=== PATIENT | female | born 1945 | race Caucasian/White ===

== ENCOUNTER → 2018-02-03 08:39 | Outpatient (CLI) | payer MEDICARE, SELFPAY ==
[2018-02-03 10:24] LABS: Absolute Lymphocyte Count 2.22 X10^3/ul (0.83-4.51); Absolute Neutrophil Count 3.2 X10^3/uL (2.0-7.7); Basophil# 0.02 X10^3/uL; Basophil% 0.3 % (0-1); Eosinophil# 0.07 X10^3/uL; Eosinophils% 1.2 % (0-5); Hemoglobin 12.6 g/dl (12.0-15.0); Lymphocyte # 2.22 X10^3/ul (4.0); Lymphocyte % 36.8 % (19-41); Mean Corp Hgb Conc 32.3 g/gl (32-36); Mean Corpuscular Hgb 30.4 pg (27.0-32.0); Mean Corpuscular Volume 94.2 fL (81-99); Mean Platelet Vol. 9.1 fl (6.2-12.0); Monocyte# 0.52 X10^3/uL; Monocyte% 8.6 % (0-10); Neutrophil # 3.18 X10^3/uL (2.7-7.7); Neutrophil % 52.8 % (47-70); Platelet Count 330 K/mm3 (150-450); RBC Distribution Width CV 14.3 % (11.6-14.6); RBC Distribution Width SD 48.9 fl (35.1-43.9); Red Blood Count 4.14 M/mm3 (4.2-5.4)
[2018-02-03 10:25] LABS: POSITIVE COUNT NO; POSITIVE DIFFERENTIAL NO; POSITIVE MORPHOLOGY NO
[2018-02-03 10:58] LABS: AST(SGOT) 22 U/L (15-37); Alanine Aminotransfer ALT/SGPT 20 U/L (13-56); Albumin, Serum 3.7 g/dL (3.2-5.0); Alkaline Phosphatase 70 U/L (45-117); Anion Gap 6 (5-15); BUN 15 mg/dL (7-18); BUN/Creat Ratio 19.3 RATIO (10-20); Calcium,Total 8.8 mg/dL (8.5-10.1); Chloride 105 mmol/L (98-107); Creatinine, Serum 0.78 mg/dL (0.55-1.02); EST Glomerular Filtration Rate 78 mL/min (>60); Est Glom Filt Rate - Afr Amer 94 mL/min (>60); Globulin 3.8 g/dL (2.2-4.2); Glucose 96 mg/dL (74-106); Potassium 3.6 mmol/L (3.5-5.1); Protein, Total 7.5 g/dL (6.4-8.2); Sodium Level 140 mmol/L (136-145)
== END ==
PROVIDERS: Family Provider Family Medicine; PCP Family Medicine; Visit Provider Internal Medicine Rheumatology
DX: M06.09 Rheumatoid arthritis without rheumatoid factor, multiple sites (principal); M18.0 Bilateral primary osteoarthritis of first carpometacarpal joints
CPT/HCPCS: 36415; 80053; 85025

== ENCOUNTER → 2018-10-22 11:56 | Outpatient (CLI) | payer MEDICARE, SELFPAY ==
--- NOTE | 2018-10-22 11:59 | BI_ITS ---
MAMMOGRAPHY - BILATERAL SCREENING REASON FOR EXAM: Female, 72 years old. Routine annual screening examination. PERTINENT HISTORY: Non-contributory. TECHNIQUE: Digital bilateral breast marino (3D mammographic acquisition) in the CC and MLO projections. 2-D mediolateral oblique (MLO) and craniocaudad (CC) views of both breasts were obtained. CAD: Full Field Digital Mammography with Computer Added Detection was performed. COMPARISON: Comparison is made with prior study dated September 13, 2017 and August 27, 2016. FINDINGS: Breast Composition: The breasts are heterogeneously dense, which may obscure small masses. There are no dominant masses or suspicious calcifications. No other significant abnormalities are identified. There has been no significant change since the prior study. BI/SCREENING MAMM (CAD), BILAT IMPRESSION: Stable bilateral screening mammogram. Yearly follow-up mammogram recommended. (A) ASSESSMENT CATEGORY: BIRADS Category 1: Negative. A letter regarding these results will be sent to the patient by the facility within 30 days. Approximately 10% of breast cancers are not detected by mammography. A normal mammogram should not delay biopsy of a clinically suspicious abnormality. [id number] Electronically Signed: Erik Saxena MD at 13:14 EST Tel [phone], Service support ,
--- OUTSIDE RECORDS SUMMARY | 2018-12-08 07:16 | XMS RPT_ITS ---
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, Community unspecified / Hospital M15.9(ICD-10) Repository 02/03/2018 Unknown M18.11 - Unilateral Vellanki, Lenore Active [place] primary Community osteoarthritis of Hospital first carpometacarpal Repository joint, right hand / M18.11(ICD-10) 02/03/2018 Unknown M18.10 - Unilateral Vellanki, Lenore Active [place] primary Community osteoarthritis of Hospital first carpometacarpal Repository joint, unspecified hand / M18.10(ICD-10) 02/03/2018 Unknown M18.12 - Unilateral Vellanki, Lenore Active [place] primary Community osteoarthritis of Hospital first carpometacarpal Repository joint, left hand / M18.12(ICD-10) PROCEDURES PROCEDURES No Procedure Records FoundRESULTS RESULTS SCREENING MAMM (CAD), Observed: 10/22/2018 Status: F Source: [place] BILAT 11:59 AM [facility] REPOSITORY [facility] Imaging Services [address] [place] [address] SCREENING MAMM (CAD), BILAT MR#: [id number] Acct: [id number] Name: TAMMIE SANCHEZ Rep #: [id number] : 1945 F 72 From: Erik Saxena MD PCP: Natalie Farris DO Status: REG CLI Study: SCREENING MAMM (CAD), BILAT Date of Exam: 10/22/18 Exam# [id number] Ordering Dr: Natalie Farris DO MAMMOGRAPHY - BILATERAL SCREENING REASON FOR EXAM: Female, 72 years old. Routine annual screening examination. PERTINENT HISTORY: Non-contributory. TECHNIQUE: Digital bilateral breast marino (3D mammographic acquisition) in the CC and MLO projections. 2-D mediolateral oblique (MLO) and craniocaudad (CC) views of both breasts were obtained. CAD: Full Field Digital Mammography with Computer Added Detection was performed. COMPARISON: Comparison is made with prior study dated September 13, 2017 and August 27, 2016. FINDINGS: Breast Composition: The breasts are heterogeneously dense, which may obscure small masses. There are no dominant masses or suspicious calcifications. No other significant abnormalities are identified. There has been no significant change since the prior study. BI/SCREENING MAMM (CAD), BILAT IMPRESSION: Stable bilateral screening mammogram. Yearly follow-up mammogram recommended. (A) ASSESSMENT CATEGORY: BIRADS Category 1: Negative. A letter regarding these results will be sent to the patient by the facility within 30 days. Approximately 10% of breast cancers are not detected by mammography. A normal mammogram should not delay biopsy of a clinically suspicious abnormality. [id number] Electronically Signed: Erik Saxena MD at 13:14 EST Tel [phone], Service support , CC: Natalie Farris DO Escort Car Driver: Signed CBC W/DIFF, AUTOMATED Collected: 02/03/2018 Status: F Source: [place] 8:43 AM [facility] REPOSITORY TYPE CODE TESTS RESULT OUT OF RANGE REFERENCE UNITS LAB L100.1000 4.4-11.0 K/mm3 Normal WBC 6.0 LAB L100.1200 4.2-5.4 M/mm3 Low RBC 4.14 LAB L100.1300 12.0-15.0 g/dl Normal HGB 12.6 LAB L100.1400 37-47 % Normal HCT 39.0 LAB L100.1500 81-99 fL Normal MCV 94.2 LAB L100.1600 27.0-32.0 pg Normal MCH 30.4 LAB L100.1700 32-36 g/gl Normal MCHC 32.3 LAB L100.1810 11.6-14.6 % Normal RDW CV 14.3 LAB L100.1820 35.1-43.9 fl High RDW SD 48.9 LAB L100.1900 150-450 K/mm3 Normal PLT 330 LAB L100.2000 6.2-12.0 fl Normal MPV 9.1 LAB L100.2100 47-70 % Normal NEUT% 52.8 LAB L100.2200 19-41 % Normal LY% 36.8 LAB L100.2300 0-10 % Normal MONO% 8.6 LAB L100.2400 0-5 % Normal EO% 1.2 LAB L100.2500 0-1 % Normal BASO% 0.3 LAB L100.2550 0.0-0.9 % Normal IM GRAN % 0.300 Result Comment: IG% - Immature Granulocytes (promyelocytes, myelocytes and metamyelocytes) > 1% indicates that a LEFT SHIFT is Present. LAB L100.2620 2.0-7.7 X10 3/uL Normal Absolute Neut 3.2 LAB L100.2720 0.83-4.51 X10 3/ul Normal Absolute Lymph 2.22 Performed By: #### L100.0100 #### [facility] [place], [address] COMPREHENSIVE METABOLIC Collected: 02/03/2018 Status: F Source: [place] AT[place] 8:43 AM [facility] REPOSITORY TYPE CODE TESTS RESULT OUT OF RANGE REFERENCE UNITS LAB L501.0100 74-106 mg/dL Normal GLU 96 Result Comment: Please note revised GLUCOSE reference range effective 2017. LAB L501.1000 7-18 mg/dL Normal BUN 15 LAB L501.1100 0.55-1.02 mg/dL Normal CREAT,SERUM 0.78 Result Comment: The validity of the calculated GFR AND GFRAA in patients over 70 years has not been determined. Clinical correlation is essential. LAB L501.1110 >60 mL/min Normal EST GFR 78 Result Comment: Non- GFR Calc LAB L501.1115 >60 mL/min Normal EST GFR - AA 94 Result Comment: GFR Calc LAB L501.1300 10-20 RATIO Normal BUN/CRE 19.3 LAB L501.1500 6.4-8.2 g/dL T Normal PROT 7.5 LAB L501.1800 3.2-5.0 g/dL Normal ALB 3.7 LAB L501.1950 2.2-4.2 g/dL Normal GLOB 3.8 LAB L501.2000 0.9-2.4 RATIO Normal A/G 1.0 LAB L501.2200 8.5-10.1 mg/dL CA Normal 8.8 LAB L501.4100 15-37 U/L Normal AST 22 LAB L501.4305 45-117 U/L Normal ALK P 70 LAB L501.4405 13-56 U/L Normal ALT 20 Result Comment: Please note revised ALT reference range effective 2017. LAB L501.4600 0.20-1.00 mg/dL Normal T BILI 1.00 LAB L501.5300 136-145 mmol/L Normal NA 140 LAB L501.5600 3.5-5.1 mmol/L Normal K 3.6 LAB L501.5900 98-107 mmol/L Normal CL 105 LAB L501.6100 21.0-32.0 mmol/L Normal CO2 29.0 LAB L501.6200 5-15 Normal GAP 6 Performed By: #### L500.4050 #### [facility] [place], [address] ALLERGIES ALLERGIES DATE TYPE / CODE NAME / CODE REACTION SEVERITY SOURCE 10/31/2017 Drug Sulfa Rash Unknown [place] [facility] Allergy/4160 (Sulfonamide Hospital 39861(SNOMED Antibiotics)/ Repository CT) [id number](RX NORM) 10/31/2017 Drug fentanyl/F006 Other Unknown [place] [facility] Allergy/4160 756667(RXNORM Hospital 53812(SNOMED ) Repository CT) ENCOUNTERS ENCOUNTERS ADMIT/DISCHARGE ACCOUNT ADMITTING ENCOUNTER LOCATION SOURCE NUMBER CLASS 10/22/2018 [id number] [place] [facility] ing:OPBI Repository 02/03/2018 [id number] Ambulatory [place] [facility] ing:LAB Repository PAYERS PAYERS ENCOUNTER GUARANTOR PAYER SUBSCRIBER SOURCE 10/22/2018 Tmamie Egan Primary Insurance:MMO Tammie Greyoster [id number] N MEDICAREPolicy CebulDOB: [facility] Number: [id number] [id number] Repository 18434Hje: (330) Date:7796-21-85[phone] () [address] [place], [place] [address]WP: 10/22/2018 Secondary NOT GIVENUNK [place] Insurance:SELF PAY [facility] Number: Effective Repository Date:2018-09-08 02/03/2018 Tammie Egan Primary Insurance:MMO Tammie Hu [id number] N MEDICAREPolicy CebulDOB: [facility] Number: [id number], [place] [id number] Repository [address]Cll: (330) Date:6939-09-17ET [phone] (HP) [address], [place] [address]XS: 02/03/2018 Secondary NOT GIVENUNK [place] Insurance:SELF PAY [facility] Number: Effective Repository Date:2018-02-03
== END ==
PROVIDERS: Family Provider Family Medicine; PCP Family Medicine; Visit Provider Family Medicine
DX: Z12.31 Encounter for screening mammogram for malignant neoplasm of breast (principal)
CPT/HCPCS: 77063; 77067

== ENCOUNTER → 2019-04-06 07:03 | Outpatient (CLI) | payer MEDICARE, SELFPAY ==
[2017-10-31 18:56] VITALS: BMI 18.8
[2019-04-06 07:48] LABS: Absolute Lymphocyte Count 2.36 X10^3/ul (0.83-4.51); Absolute Neutrophil Count 2.8 X10^3/uL (2.0-7.7); Basophil# 0.02 X10^3/uL; Basophil% 0.3 % (0-1); Eosinophil# 0.11 X10^3/uL; Eosinophils% 1.9 % (0-5); Hematocrit 38.4 % (37-47); Hemoglobin 12.6 g/dl (12.0-15.0); Lymphocyte # 2.36 X10^3/ul (4.0); Lymphocyte % 40.6 % (19-41); Mean Corp Hgb Conc 32.8 g/gl (32-36); Mean Corpuscular Hgb 30.4 pg (27.0-32.0); Mean Corpuscular Volume 92.8 fL (81-99); Mean Platelet Vol. 9.4 fl (6.2-12.0); Monocyte# 0.55 X10^3/uL; Monocyte% 9.5 % (0-10); Neutrophil # 2.76 X10^3/uL (2.7-7.7); Neutrophil % 47.5 % (47-70); Platelet Count 288 K/mm3 (150-450); RBC Distribution Width CV 13.8 % (11.6-14.6); RBC Distribution Width SD 45.4 fl (35.1-43.9); Red Blood Count 4.14 M/mm3 (4.2-5.4); White Blood Count 5.8 K/mm3 (4.4-11.0)
[2019-04-06 07:56] LABS: POSITIVE COUNT NO; POSITIVE DIFFERENTIAL NO; POSITIVE MORPHOLOGY NO
[2019-04-06 08:54] LABS: ALB/GLOB Ratio 0.9 RATIO (0.9-2.4); AST(SGOT) 29 U/L (15-37); Alanine Aminotransfer ALT/SGPT 31 U/L (13-56); Albumin, Serum 3.4 g/dL (3.2-5.0); Alkaline Phosphatase 66 U/L (45-117); Anion Gap 6 (5-15); BUN 22 mg/dL (7-18); BUN/Creat Ratio 25.9 RATIO (10-20); Calcium,Total 8.5 mg/dL (8.5-10.1); Chloride 106 mmol/L (98-107); Cholesterol 183 mg/dL (200); Creatinine, Serum 0.85 mg/dL (0.55-1.02); EST Glomerular Filtration Rate 70 mL/min (>60); Est Glom Filt Rate - Afr Amer 85 mL/min (>60); Globulin 3.7 g/dL (2.2-4.2); Glucose 84 mg/dL (74-106); High Density Lipoprotein 79 mg/dL; Potassium 3.8 mmol/L (3.5-5.1); Protein, Total 7.1 g/dL (6.4-8.2); Rheumatoid Factor < 10.0 IU/mL (<15); Sodium Level 142 mmol/L (136-145); Triglycerides 54 mg/dL; Very Low Density Lipoprotein 11 mg/dL (5-40)
== END ==
PROVIDERS: Family Provider Family Medicine; PCP Family Medicine; Referring Provider Family Medicine; Visit Provider Family Medicine
DX: Z13.220 Encounter for screening for lipoid disorders (principal); Z51.81 Encounter for therapeutic drug level monitoring; R53.83 Other fatigue; E78.5 Hyperlipidemia, unspecified; M06.9 Rheumatoid arthritis, unspecified
CPT/HCPCS: 36415; 80053; 80061; 85025; 86431

== ENCOUNTER → 2019-05-03 14:25 | Outpatient (CLI) | payer MEDICARE, SELFPAY ==
[2017-10-31 18:56] VITALS: BMI 18.8
--- NOTE | 2019-05-03 14:33 | RAD_ITS ---
STUDY: X-RAY - RIGHT FOOT CLINICAL: Female, 73 years old. TECHNIQUE: view(s) of the foot. COMPARISON: None. FINDINGS: Normal talus, calcaneus, and tarsal bones. Normal visualized subtalar, talonavicular, calcaneocuboid, tarsal and tarsometatarsal articulations. Normal metatarsi. Normal metatarsophalangeal joint of the great toe. Normal tibial and fibular sesamoid bones. Normal interphalangeal joint of the great toe. Normal phalanges of the great toe. Normal second through fifth metatarsophalangeal joints. Normal interphalangeal joints and phalanges of the lesser toes. The soft tissue structures are unremarkable. RAD/Foot min 3 Views IMPRESSION: Normal x-ray examination of the foot. Electronically Signed: Francis Boykinkayley, at 16:34 EDT Tel , Service support ,
== END ==
PROVIDERS: Family Provider Family Medicine; PCP Family Medicine; Referring Provider Family Medicine; Visit Provider Family Medicine
DX: M79.671 Pain in right foot (principal)
CPT/HCPCS: 73630

== ENCOUNTER 2019-05-04 20:56 | Inpatient (IN) | payer MEDICARE, SELFPAY ==
[2019-05-04 20:58] VITALS: BP 166/148; PULSE 81; RESP 24; TEMP 36.8; O2SAT 100; BMI 45.2
--- NOTE | 2019-05-04 21:14 | ED.VISSUMM ---
- ER Visit Summary Date of Service: 05/04/19 Chief Complaint: Fall, right hip pain History of Present Illness: The patient is a 73 F presenting after fall with right hip pain. Patient states that she was accidentally knocked over by her miniature horse. She fell directly onto her right hip. She did not hit her head or lose consciousness. She is not on anticoagulants. She was unable to get up after the fall. EMS was called. She denies other complaints. Physical Examination: Vitals are stable. Patient is afebrile. Alert no acute distress. HEENT exam is unremarkable. Neck is nontender Lungs are clear and equal bilaterally. Heart is regular rate and rhythm. Abdomen is soft nontender nondistended. Extremities right lower extremity externally rotated and shortened. Normal pulse. Skin is warm and dry. No focal neurologic deficit. Remainder of exam is unremarkable. Emergency Department Course and Treatment: Patient initially declined pain medication. Right hip x-ray shows comminuted intertrochanteric right hip fracture. Chest x-ray shows no acute process. CBC, chemistries unremarkable. Patient is agreeable to small dose of morphine. She was given morphine, Zofran IV. She is requesting transfer to [facility] as she has seen Dr. Ba Dick orthopedics in the past. Discussed with [facility] and they currently have no beds available. Patient is agreeable to admission here and is requesting Dr. James Gaytan. Discussed with the hospitalist for admission. Disposition: Admission Impression: Right intertrochanteric fracture This note was generated with [employer] dictation software. It may contain incorrect words, spelling, and punctuation that were not noted in review of the chart prior to signing ED Disposition - Plan for ED Patient: Referrals: Natalie Farris DO [Primary Care Provider] -
[2019-05-04 21:33] LABS: Absolute Lymphocyte Count 4.51 X10^3/ul (0.83-4.51); Absolute Neutrophil Count 3.7 X10^3/uL (2.0-7.7); Basophil# 0.02 X10^3/uL; Basophil% 0.2 % (0-1); Eosinophil# 0.09 X10^3/uL; Hematocrit 36.1 % (37-47); Hemoglobin 11.9 g/dl (12.0-15.0); Lymphocyte # 4.51 X10^3/ul (4.0); Lymphocyte % 49.5 % (19-41); Mean Corpuscular Hgb 30.4 pg (27.0-32.0); Mean Corpuscular Volume 92.3 fL (81-99); Mean Platelet Vol. 9.2 fl (6.2-12.0); Monocyte# 0.77 X10^3/uL; Monocyte% 8.4 % (0-10); Neutrophil # 3.72 X10^3/uL (2.7-7.7); Neutrophil % 40.8 % (47-70); Platelet Count 245 K/mm3 (150-450); RBC Distribution Width CV 13.8 % (11.6-14.6); RBC Distribution Width SD 46.4 fl (35.1-43.9); Red Blood Count 3.91 M/mm3 (4.2-5.4); White Blood Count 9.1 K/mm3 (4.4-11.0)
[2019-05-04 21:35] LABS: POSITIVE COUNT NO; POSITIVE DIFFERENTIAL NO; POSITIVE MORPHOLOGY NO
--- NOTE | 2019-05-04 21:40 | RAD_ITS ---
HISTORY:PT KNOCKED OVER BY HORSE AND FELL ON RIGHT HIP. RIGHT HIP PAIN. PT KNOCKED OVER BY HORSE AND FELL ON RIGHT HIP. RIGHT HIP PAIN. COMPARISON: None FINDINGS: # of images incl. paperwork: 3 XR Hip Unilateral with Pelvis when performed; 2-3 Views: Right Artifact obscures the right proximal femur BONE AND JOINTS: There is a comminuted intertrochanteric fracture. Mild varus angulation of distal fracture fragment. Slight impaction of the fracture fragments. Left total hip arthroplasty SOFT TISSUES: Associated soft tissue swelling No radiopaque foreign body. RAD/HIP, UNI W/ Pelvis 2-3 Views IMPRESSION: Comminuted intertrochanteric right hip fracture at 2216 Reported and signed by: Desire Renteria DO Electronically Signed: Desire Renteria DO at 22:15 EDT Tel , Service support ,
--- NOTE | 2019-05-04 21:40 | RAD_ITS ---
HISTORY:TRAUMA. FALL AND RIGHT HIP PAIN. TRAUMA. FALL AND RIGHT HIP PAIN. EXAM: XR Chest 1 View: COMPARISON: None FINDINGS: # of images incl. paperwork: 4 LINES/DEVICES: None. LUNGS: Radiographically clear. No consolidation, edema or effusion. No pneumothorax. MEDIASTINUM AND CARDIOVASCULAR STRUCTURES: Cardiac silhouette not enlarged. BONES AND SOFT TISSUES: Degenerative changes are seen at the shoulders bilaterally RAD/Chest 1 View IMPRESSION: No radiographic evidence of acute cardiopulmonary disease. at 2217 Reported and signed by: Desire Renteria DO Electronically Signed: Desire Renteria DO at 22:16 EDT Tel , Service support ,
[2019-05-04 21:44] LABS: Anion Gap 8 (5-15); BUN 13 mg/dL (7-18); BUN/Creat Ratio 14.7 RATIO (10-20); Chloride 106 mmol/L (98-107); Creatinine, Serum 0.88 mg/dL (0.55-1.02); EST Glomerular Filtration Rate 67 mL/min (>60); Est Glom Filt Rate - Afr Amer 81 mL/min (>60); Estimated Creatinine Clearance 41.51 ml/min; Glucose 111 mg/dL (74-106); Potassium 3.2 mmol/L (3.5-5.1); Sodium Level 141 mmol/L (136-145)
[2019-05-04 22:00] VITALS: BP 112/59; PULSE 74; RESP 19; O2SAT 100
[2019-05-04 23:00] VITALS: BP 114/60; PULSE 68; RESP 19; O2SAT 100
[2019-05-04] MEDS: Ondansetron 4 MG/2 ML Vial IV (23:04)
[2019-05-04] MEDS: Morphine 2 MG/ML Syringe 1 MG IV (23:04)
--- NOTE | 2019-05-04 23:40 | ED.RN ---
FLOOR ORDERS GIVEN BY PHONE ORDER READ BACK TO DR. ZI SHEPARD TAKEN BY NADINE GARCIA, DR. CARTER AWARE ORDERS SENT TO THE FLOOR UPON ADMISSION.
--- NOTE | 2019-05-04 23:43 | HP.PCM_ITS ---
Problem List (1) Closed right hip fracture Status: Acute Qualifiers: Encounter type: initial encounter Qualified Code(s): S72.001A - Fracture of unspecified part of neck of right femur, initial encounter for closed fracture (2) Normocytic anemia Status: Acute (3) Hypokalemia Status: Acute History of Present Illness Date of Admission: 05/04/19 Chief Complaint: R hip pain s/p fall The patient is a 73 y/o F w/ no marked PMHx in good health, active taking OTC vitamin supplementation only who presents to the [facility] ED on 05/04/19 with history fo unfortunately being tripped by her miniature meal, falling onto her right hip with notable debility and pain following. Work-up in the ED included T 98.3, heart rate 81, BP initially 166/148 however improved with pain regimen to 114/60, respiratory rate initially 24 with improvement in 19 following pain regimen, 100% on room air, CBC with W BC 9.1, hemoglobin 11.9, platelet 245 without evidence of left shift, BMP with potassium 3.2, glucose 111, chest x-ray with no acute cardia pulmonary findings, Branden film of the hip and pelvis with comminuted intertrochanteric right hip fracture evident. EKG requested per ED and pending. In the ED patient ministered Zofran as well as morphine [address] James Gaytan consulted per ED and amenable to operative intervention of patient which was discussed also with hospitalist upon presentation. Past Medical History Allergies amoxicillin [From Augmentin] Allergy (Verified 05/04/19 21:07) Unknown clavulanic acid [From Augmentin] Allergy (Verified 05/04/19 21:07) Unknown fentanyl Allergy (Verified 10/31/17 18:56) Other Sulfa (Sulfonamide Antibiotics) Allergy (Verified 10/31/17 18:56) Rash Home Medications: Ambulatory Orders Medication Instructions Recorded Cannabidiol (Cbd) Extract 100 mg PO DAILY 05/04/19 [Epidiolex] Surgical History: - - Left total hip replacement, tonsillectomy. Psychiatric History: No pertinent psych hx [employer]EDER History: No pertinent [employer] history Lives: Alone Smoking Status: Never smoker Tobacco Use: Non-smoker Alcohol: None Drugs: None - *Family History Maternal History Items: - - Patient notes her mother was very healthy, passed at age 93 with no history of heart disease, diabetes or cancer. Paternal History Items: - - Patient notes a paternal family history of [place], coronary disease in her father. Review of Systems Constitutional: Reports: Anorexia, Malaise, Weakness, Fatigue. Denies: Chills, Fever, Weight Change HEENT: Denies: Head Aches, Sinus Congestion, Sinus Drainage Cardiovascular: Denies: Chest Pain, Palpitations Respiratory: Denies: Cough, Shortness of breath at rest, Sputum production Gastrointestinal: Denies: Abdominal Pain, Nausea, Vomiting Genitourinary: Denies: Dysuria Musculoskeletal: Reports: Joint Pain, Joint stiffness, Joint swelling, Joint Tenderness, Leg Pain Skin: Denies: Rash, Wounds Neurological: Denies: Numbness, Tingling, Focal weakness Psychiatric: Denies: Anxiety, Depression, Homicidal Ideations, Suicidal Ideations Hematologic/ Lymphatic: Denies: Anemia, Easy Bruising, Easy Bleeding VTE Information - Inpt Only VTE Present on Admission: No VTE Mechan Device Prophylaxis: SCD's VTE Pharm Prophylaxis ordered?: No Reason prophylaxis not ordered:: Medical Contraindication - Holding chemoprophylaxis given planned operative intervention within 24 hours, start chemoprophylaxis following. Patient Problems: Active and Suspected Problems Closed right hip fracture (Acute) Normocytic anemia (Acute) Hypokalemia (Acute) Subjective: Patient laying in ED bed, notes discomfort when attempted movements but recent pain regimen thus improved. Objective: Physical Examination: General: awake, alert, oriented x 3 and cooperative, laying in the ED bed, uncomfortable with certain movements but recent pain regimen with reduction in right hip pain. Skin: normal color, turgor, no icterus, cyanosis. HEENT: AT/NC, EOMI, PERRLA, mildly dry MM, no carotid bruits or JVD noted. Lungs: CTA bilaterally, moderate effort, mild decrease BL bases, no rales, ronchi or wheezing. Heart: Regular rate and rhythm; no gallop, rub audible. Abdomen: soft, NTTP, ND, normal BS, no HSM. Extremities: no cyanosis, clubbing, s/p fall w/ R hip fracture, external rotation, peripheral pulses intact, sensation intact. Neurological: patient awake, alert, oriented x 3; cognitive function intact; pupils equally reactive to light and accomodation; cranial nerves II-XII grossly normal, moving all 4 extremities although is expected limitation to right lower extremity given right hip fracture status post recent fall, sensation intact, strength accordingly severely global decrease. Psychiatric: affect appears normal, no acute evidence of depressive or anxiety feelings. - Physical Exam Vital Signs Temp Pulse Resp BP Pulse Ox 98.3 F 68 19 H 114/60 100 05/04/19 20:58 05/04/19 23:00 05/04/19 23:00 05/04/19 23:00 05/04/19 23:00 Oxygen Delivery Method Room Air Weight: 231 lb 7.766 oz Body Mass Index (BMI) 45.2 Laboratory Tests Past 24 Hrs 05/04/19 05/04/19 21:00 21:00 WBC 9.1 RBC 3.91 L Hgb 11.9 L Hct 36.1 L MCV 92.3 MCH 30.4 MCHC 33.0 RDW 13.8 RDW Differential 46.4 H Plt Count 245 MPV 9.2 Immature Gran % (Auto) 0.100 Neut % (Auto) 40.8 L Lymph % (Auto) 49.5 H [place] % (Auto) 8.4 Eos % (Auto) 1.0 Baso % (Auto) 0.2 Absolute Neuts (auto) 3.7 Absolute Lymphs (auto) 4.51 Total Counted Not Reportable Sodium 141 Potassium 3.2 L Chloride 106 Carbon Dioxide 27.0 Anion Gap 8 BUN 13 Creatinine 0.88 Estim Creat Clear Calc 41.51 Est GFR (MDRD) Af Amer 81 Est GFR (MDRD) Non-Af 67 BUN/Creatinine Ratio 14.7 Glucose 111 H Calcium 9.0 Assessment/Plan All Active Problems Closed right hip fracture (Acute) Normocytic anemia (Acute) Hypokalemia (Acute) The patient is a 73 y/o F w/ no marked PMHx in good health, active taking OTC vitamin supplementation only who presents to the [facility] ED on 05/04/19 with history fo unfortunately being tripped by her miniature meal, falling onto her right hip with notable debility and pain following. (1) General debility, R hip pain s/p mechanical fall w/ comminuted i ntertrochanteric right hip fracture: Plain film noting comminuted intertrochanteric right hip fracture. Orthopedic surgery consulted from ED. Will admit to [facility], maintain NPO, continue gentle IVFs, obtain TSH, Mag level, ryder placement, monitor I/Os, frequent positioning, fall precautions, type and screen. Pain, anti-emetic regimen. PT/OT following operative intervention. CM consulted for discharge planning. EKG requested in the ED. Per Alberto Perioperative Cardiac Risk Index given >4 METS, age 73, Cr <1.5, independent living status, ASA minimal for orthopedic intervention, estimated risk of perioperative myocardial infarction or cardiac arrest low. EKG requested and if no acute concerns as discussed with Dr. Gaytan agree with progression to OR 05/05/19. (2) Acute normocytic anemia: Admission hemoglobin 11.9, prior 12 range, likely secondary to as noted acute presentation #1, trend CBC. (3) Hypokalemia: Admission K+ 3.2, supplementation given, repeat level in AM. (4) DVT prophylaxis: SCD, initiate chemoprophylaxis following operative intervention given planned operative intervention 05/05/19. Code Visit Inpatient E&M: 87312 Init Hosp L3
[2019-05-05 00:24] VITALS: BMI 20.7
[2019-05-05 00:24] LABS: Prothrombin Time (Protime)PT. 13.4 SECONDS (11.7-14.9)
[2019-05-05 00:25] VITALS: BP 110/56; PULSE 73; RESP 18; TEMP 37.1; O2SAT 99
[2019-05-05 00:25] LABS: Partial Thromboplast Time 29.5 Seconds (24.1-36.2)
[2019-05-05 00:38] LABS: Magnesium 1.9 mg/dL (1.6-2.6)
[2019-05-05] MEDS: 0.9% Normal Saline 1,000 ML 125 ML IV ×2 (01:14→09:00)
[2019-05-05] MEDS: Acetaminophen 325 MG Tablet 650 MG PO (03:48)
[2019-05-05 05:35] VITALS: BP 90/51; PULSE 65; RESP 16; TEMP 37.1; O2SAT 98
[2019-05-05 05:55] LABS: Absolute Lymphocyte Count 1.73 X10^3/ul (0.83-4.51); Absolute Neutrophil Count 6.6 X10^3/uL (2.0-7.7); Basophil# 0.01 X10^3/uL; Basophil% 0.1 % (0-1); Hematocrit 32.1 % (37-47); Hemoglobin 10.6 g/dl (12.0-15.0); Lymphocyte # 1.73 X10^3/ul (4.0); Lymphocyte % 19.1 % (19-41); Mean Corpuscular Hgb 30.5 pg (27.0-32.0); Mean Corpuscular Volume 92.2 fL (81-99); Mean Platelet Vol. 9.1 fl (6.2-12.0); Monocyte# 0.73 X10^3/uL; Neutrophil % 72.7 % (47-70); Platelet Count 207 K/mm3 (150-450); RBC Distribution Width CV 13.8 % (11.6-14.6); RBC Distribution Width SD 45.3 fl (35.1-43.9); Red Blood Count 3.48 M/mm3 (4.2-5.4); White Blood Count 9.1 K/mm3 (4.4-11.0)
[2019-05-05 06:03] LABS: Anion Gap 8 (5-15); BUN 12 mg/dL (7-18); BUN/Creat Ratio 16.9 RATIO (10-20); Chloride 108 mmol/L (98-107); Creatinine, Serum 0.71 mg/dL (0.55-1.02); EST Glomerular Filtration Rate 86 mL/min (>60); Est Glom Filt Rate - Afr Amer 104 mL/min (>60); Estimated Creatinine Clearance 36.53 ml/min; Glucose 120 mg/dL (74-106); Potassium 4.1 mmol/L (3.5-5.1); Sodium Level 142 mmol/L (136-145)
[2019-05-05 06:04] LABS: POSITIVE COUNT NO; POSITIVE DIFFERENTIAL NO; POSITIVE MORPHOLOGY NO
[2019-05-05 07:31] VITALS: BP 107/58; PULSE 62; RESP 18; TEMP 37.1; O2SAT 100
[2019-05-05 08:40] VITALS: O2SAT 98
--- NOTE | 2019-05-05 08:49 | NURSING ---
Visitor out to nurses' station requesting for breakfast to be brought LOUIE since pt can eat until 0900. This RN notified visitor that pt is ordered a clear diet until 0900 and then NPO at that time. This RN gave pt tea, jello, apple juice and chicken broth at this time. Offered to call Dr. Gaytan to see if diet could be given this AM- pt. denied need to inquire and states she will just drink what she has.
[2019-05-05] MEDS: Ondansetron 4 MG/2 ML Vial IV (09:37)
[2019-05-05] MEDS: Morphine 2 MG/ML Syringe IV ×3 (09:37→17:03)
[2019-05-05] MEDS: 0.9% NaCl Peripheral Flush Adult/Peds IV ×2 (09:37→12:46)
--- NOTE | 2019-05-05 09:39 | NURSING ---
This RN received phone call from Doris- nursing associate at [facility] and notified this RN that patient had been requesting to be transferred in ER yesterday because her surgeon, Dr. Dick is located at that location. She states she is unsure why it never went through and that they never heard anything. This RN notified that admitting doctor would be Dr. Anne and given number for hospitalist to call: [phone] and This RN entered pt's room and pt. was on phone with Doris. This RN inquired if pt was wishing to be sent to [facility]. Pt notified this RN that she wants to be transferred to have Dr. Dick as her surgeon. This notified Dr. Busby, and was given number to call. Also notified Dr. Gaytan's surgery scheduling office, Damaris in and notified pt.
--- NOTE | 2019-05-05 11:11 | DCINST_ITS ---
- Discharge Diagnoses Current Active Problems: Current Active and Chronic Problems Closed right hip fracture (Acute) Normocytic anemia (Acute) Hypokalemia (Acute) Reason(s) for Visit for Discharge Instructions: right hip fracture You will use the following diet at home:: Regular Your food should be the consistency of: Regular Your liquids should be the consistency of: Regular/Thin Allergies/Adverse Reactions: Allergies amoxicillin [From Augmentin] Allergy (Verified 05/04/19 21:07) Unknown clavulanic acid [From Augmentin] Allergy (Verified 05/04/19 21:07) Unknown fentanyl Allergy (Verified 10/31/17 18:56) Other Sulfa (Sulfonamide Antibiotics) Allergy (Verified 10/31/17 18:56) Rash Medications to take at Discharge Cannabidiol (Cbd) Extract [Epidiolex] 100 mg PO DAILY 05/04/19 Primary Care Physician: Natalie Farris DO [Primary Care Provider] - Test Results: Test results from this visit will be discussed in further detail at your follow- up appointment, if applicable. Proposed Discharge Date: 05/05/19
--- NOTE | 2019-05-05 11:13 | DS.PCM_ITS ---
Discharge Date and Diagnosis - Problem List Patient Problems: Active and Suspected Problems Closed right hip fracture (Acute) Normocytic anemia (Acute) Hypokalemia (Acute) Date of Admission: 05/04/19 Date of Discharge: 05/05/19 - Primary Discharge Diagnosis Active and Suspected Problems Closed right hip fracture (Acute) Normocytic anemia (Acute) Hypokalemia (Acute) Hospital Course and Treatment Imaging Results: 05/05/19 06:30 Hip Min 2 Views (Portable) [RAD] Urgent O.R. Fluoro for C-Arm [RAD] Urgent None Operations: None Procedures: None Summary of Care Provided: The patient is a 73 year old F with no significant past medical history who was accidentally knocked over by her miniature horse. She fell on her right hip and realized that she could not get up. Denies hitting her head or losing consciousness. The EMS was called. Patient's vitals were stable in the emergency department. Admitting blood work was significant for hypokalemia which was replaced. Repeat blood work was unremarkable. X-ray of the right hip showed comminuted intertrochanteric right hip fracture. Patient's primary orthopedic surgeon is in [facility] and had requested but they did not have any beds and was accepted to the [facility]. Patient was eventually accepted by the hospital. Patient Problems: Active and Suspected Problems Closed right hip fracture (Acute) Normocytic anemia (Acute) Hypokalemia (Acute) Subjective: The day of discharge, patient was seen and examined. She requested transfer to [facility] in [place] as her surgeon, Dr. Dick is there. She was not willing to be admitted to the hospital but she says the ED could not reach Dr. Dick and she ended up being admitted here. - Physical Exam General: Alert, Oriented x3, Cooperative, No apparent distress HEENT: Atraumatic, PERRLA, EOMI, Normocephalic Oral: Moist Mucosa Neck: Supple Lungs: Clear to auscultation, Normal air movement Cardiovascular: Regular rate, Regular Rhythm, Normal S1, Normal S2, No murmurs Abdomen: Bowel Sounds Present, Soft, Non Tender, Non-Distended, No Hepato- splenomegaly Extremities: No edema Skin: No rashes, No breakdown Musculoskeletal: Tenderness - Tenderness over the right hip. Neurological: Cranial nerves II-XII grossly intact, Neuro grossly intact Psych/Mental Status: Normal Affect, Appropriate Vital Signs Temp Pulse Resp BP Pulse Ox 98.7 F 62 18 107/58 L 98 05/05/19 07:31 05/05/19 07:31 05/05/19 07:31 05/05/19 07:31 05/05/19 08:40 Oxygen Delivery Method Room Air Weight: 48.081 kg Body Mass Index (BMI) 20.7 Intake and Output for Last 24 Hours 05/03/19 05/04/19 05/05/19 23:59 23:59 23:59 Intake Total 643 / 643 Output Total 850 / 850 Balance -207 / -207 Laboratory Tests Past 24 Hrs 05/04/19 05/04/19 05/04/19 21:00 21:00 21:00 WBC 9.1 RBC 3.91 L Hgb 11.9 L Hct 36.1 L MCV 92.3 MCH 30.4 MCHC 33.0 RDW 13.8 RDW Differential 46.4 H Plt Count 245 MPV 9.2 Immature Gran % (Auto) 0.100 Neut % (Auto) 40.8 L Lymph % (Auto) 49.5 H [place] % (Auto) 8.4 Eos % (Auto) 1.0 Baso % (Auto) 0.2 Absolute Neuts (auto) 3.7 Absolute Lymphs (auto) 4.51 Total Counted Not Reportable PT 13.4 INR 1.0 APTT 29.5 Sodium 141 Potassium 3.2 L Chloride 106 Carbon Dioxide 27.0 Anion Gap 8 BUN 13 Creatinine 0.88 Estim Creat Clear Calc 41.51 Est GFR (MDRD) Af Amer 81 Est GFR (MDRD) Non-Af 67 BUN/Creatinine Ratio 14.7 Glucose 111 H Calcium 9.0 Magnesium TSH Blood Type Antibody Screen 05/04/19 05/04/19 05/05/19 21:00 21:00 05:32 WBC RBC Hgb Hct MCV MCH MCHC RDW RDW Differential Plt Count MPV Immature Gran % (Auto) Neut % (Auto) Lymph % (Auto) [place] % (Auto) Eos % (Auto) Baso % (Auto) Absolute Neuts (auto) Absolute Lymphs (auto) Total Counted PT INR APTT Sodium 142 Potassium 4.1 Chloride 108 H Carbon Dioxide 26.0 Anion Gap 8 BUN 12 Creatinine 0.71 Estim Creat Clear Calc 36.53 Est GFR (MDRD) Af Amer 104 Est GFR (MDRD) Non-Af 86 BUN/Creatinine Ratio 16.9 Glucose 120 H Calcium 8.0 L Magnesium 1.9 TSH 12.80 H Blood Type Cancelled Antibody Screen Cancelled 05/05/19 05/05/19 05:32 05:32 WBC 9.1 RBC 3.48 L Hgb 10.6 L Hct 32.1 L MCV 92.2 MCH 30.5 MCHC 33.0 RDW 13.8 RDW Differential 45.3 H Plt Count 207 MPV 9.1 Immature Gran % (Auto) 0.100 Neut % (Auto) 72.7 H Lymph % (Auto) 19.1 [place] % (Auto) 8.0 Eos % (Auto) 0.0 Baso % (Auto) 0.1 Absolute Neuts (auto) 6.6 Absolute Lymphs (auto) 1.73 Total Counted Not Reportable PT INR APTT Sodium Potassium Chloride Carbon Dioxide Anion Gap BUN Creatinine Estim Creat Clear Calc Est GFR (MDRD) Af Amer Est GFR (MDRD) Non-Af BUN/Creatinine Ratio Glucose Calcium Magnesium TSH Blood Type A POSITIVE Antibody Screen NEGATIVE Discharge Diet: No Restrictions Weight Bearing Status: No weight bearing Home Medications: Medications to take at Discharge Cannabidiol (Cbd) Extract [Epidiolex] 100 mg PO DAILY 05/04/19 Primary Care Physician: Natalie Farris DO [Primary Care Provider] - Disposition: Acute care Hospital Minutes spent on discharge:: 50 Patient Condition:: Stable Medical Necessity - Tobacco Use Smoking Status: Never smoker Tobacco Use: Non-smoker Meaningful Use Info Meaningful Use Diagnoses (Choose all that apply): None applicable Code Visit Inpatient E&M: 78043 Disch Hosp
[2019-05-05 12:51] VITALS: BP 115/51; PULSE 57; RESP 18; TEMP 36.7; O2SAT 100
--- NOTE | 2019-05-05 12:56 | NURSING ---
This RN called Doris, nursing histotechnologist supervisor at [facility] to ask if pt will be going to surgery today as pt is requesting food. Doris states she will call this RN when is able to check with surgeon. RADHA Sauceda aware and to notify patient. Awaiting return call.
--- NOTE | 2019-05-05 14:00 | NURSING ---
FERNANDA Al for Dr. Dick at [facility] called in and states that pt must be transported LOUIE and that 1700 moss picker is unacceptable. This RN asked Jolly [place]/manager web application to see if time could be moved up- Jolly called [facility] and was notified they might be able to come 15 minutes early but no promises. This rn called nat GARCIA night shift supervisor and notified her of [facility] ETA as well as result of EKG NSR with nonspecific T waves. Understanding verbalized.
--- NOTE | 2019-05-05 17:17 | NURSING ---
REPORT CALLED TO HALI GARCIA @ [facility]
[2019-05-05 17:18] VITALS: BP 115/51; PULSE 57; RESP 18; TEMP 36.7; O2SAT 100
== END 2019-05-05 17:15 | disposition short-term general hospital (02) | DRG 536 ==
LOC: ED 21:23 → MS3 23:56
PROVIDERS: Admitting Provider Family Medicine; Emergency Provider Emergency Medicine; Family Provider Family Medicine; PCP Family Medicine; Referring Provider Family Medicine; Visit Provider Internal Medicine
DX: S72.141A Displaced intertrochanteric fracture of right femur, initial encounter for closed fracture (principal); W55.12XA Struck by horse, initial encounter; Z96.642 Presence of left artificial hip joint; E87.6 Hypokalemia; D64.9 Anemia, unspecified
CPT/HCPCS: 36415; 71045; 73502; 73630; 80048; 83735; 84443; 85025; 85610; 85730; 86850; 86900; 99285; J7030; A4216; J2405

== ENCOUNTER → 2019-11-05 08:29 | Outpatient (CLI) | payer MEDICARE, SELFPAY ==
[2019-10-11 13:04] VITALS: BMI 45.2
--- NOTE | 2019-11-05 08:32 | BI_ITS ---
MAMMOGRAPHY - BILATERAL SCREENING 3-D TOMOSYNTHESIS REASON FOR EXAM: Female, 73 years old. Routine annual screening mammogram. PERTINENT HISTORY: No significant family history. TECHNIQUE: 2-D mammograms and 3-D Tomosynthesis of the breast (s) were performed. CAD was performed. COMPARISON: October 22, 2018, September 13, 2017 FINDINGS: The breast composition is heterogeneously dense that can obscure small breast masses. Scattered benign calcifications are seen. No dense spiculated masses or suspicious microcalcifications are identified. No architectural distortion is identified. There is no skin thickening or retraction. There has been no significant change since the prior study. BI/SCREEN MAMM (CAD) W/NIDA BILAT IMPRESSION: No mammographic signs of malignancy. Routine yearly mammograms recommended. ASSESSMENT CATEGORY: BIRADS Category 2: Benign. A letter regarding these results will be sent to the patient by the facility within 30 days. FOLLOW UP RECOMMENDATION: Yearly follow up mammogram recommended. (A) Approximately 10% of breast cancers are not detected by mammography. A normal mammogram should not delay biopsy of a clinically suspicious abnormality. Electronically Signed: Jorge Talavera MD at 13:06 EST , Service support ,
== END ==
PROVIDERS: Family Provider Family Medicine; PCP Family Medicine; Referring Provider Family Medicine; Visit Provider Family Medicine
DX: Z12.31 Encounter for screening mammogram for malignant neoplasm of breast (principal)
CPT/HCPCS: 77063; 77067

== ENCOUNTER → 2020-07-18 11:05 | Outpatient (CLI) | payer MEDICARE, SELFPAY ==
[2020-07-18 10:50] VITALS: BMI 45.2
[2020-07-18 12:57] LABS: Free T3 1.9 pg/mL (2.18-3.98); T4 Free Direct 0.74 ng/dL (0.76-1.46); Thyroid Stim Hormone (TSH) 3.36 uIU/mL (0.358-3.74)
== END ==
PROVIDERS: PCP Internal Medicine; Referring Provider Internal Medicine; Visit Provider Internal Medicine
DX: D64.9 Anemia, unspecified (principal); R79.89 Other specified abnormal findings of blood chemistry
CPT/HCPCS: 36415; 84439; 84443; 84481

== ENCOUNTER → 2020-10-17 08:53 | Outpatient (CLI) | payer MEDICARE, SELFPAY ==
[2020-07-18 10:50] VITALS: BMI 45.2
[2020-10-17 12:09] LABS: Erythrocyte Sedimentation Rate 4 mm/hr (0-30)
[2020-10-17 12:52] LABS: CRP < 2.90 mg/L (0.0-3.0); Free T3 2.2 pg/mL (2.18-3.98); Rheumatoid Factor < 10.0 IU/mL (<15); T4 Free Direct 0.78 ng/dL (0.76-1.46); Thyroid Stim Hormone (TSH) 4.03 uIU/mL (0.358-3.74)
== END ==
PROVIDERS: PCP Internal Medicine; Referring Provider Internal Medicine; Visit Provider Internal Medicine
DX: M15.9 Polyosteoarthritis, unspecified (principal); M25.50 Pain in unspecified joint; R94.6 Abnormal results of thyroid function studies
CPT/HCPCS: 36415; 84439; 84443; 84481; 85652; 86140; 86431

== ENCOUNTER → 2020-11-06 12:04 | Outpatient (CLI) | payer MEDICARE, SELFPAY ==
[2020-07-18 10:50] VITALS: BMI 45.2
--- NOTE | 2020-11-06 12:05 | BI_ITS ---
MAMMOGRAPHY - BILATERAL SCREENING REASON FOR EXAM: Female, 74 years old. Routine annual screening examination. PERTINENT HISTORY: Non-contributory. TECHNIQUE: Digital bilateral breast nida (3D mammographic acquisition) in the CC and MLO projections. 2-D mediolateral oblique (MLO) and craniocaudad (CC) views of both breasts were obtained. CAD: Full Field Digital Mammography with Computer Added Detection was performed. COMPARISON: 11/05/2019 and 10/22/2018 FINDINGS: Breast Composition: There are scattered areas of fibroglandular density. There are no dominant masses or suspicious calcifications. No other significant abnormalities are identified. BI/SCREEN MAMM (CAD) W/NIDA BILAT IMPRESSION: Stable bilateral screening mammogram. Yearly follow-up mammogram recommended. (A) ASSESSMENT CATEGORY: BIRADS Category 2: Benign. A letter regarding these results will be sent to the patient by the facility within 30 days. Approximately 10% of breast cancers are not detected by mammography. A normal mammogram should not delay biopsy of a clinically suspicious abnormality. [id number] Electronically Signed: Nova Washington, at 15:35 EST Tel , Service support ,
== END ==
PROVIDERS: PCP Family Medicine; Referring Provider Internal Medicine; Visit Provider Internal Medicine
DX: Z12.31 Encounter for screening mammogram for malignant neoplasm of breast (principal)
CPT/HCPCS: 77063; 77067

== ENCOUNTER → 2021-04-27 08:38 | Outpatient (CLI) | payer MEDICARE, SELFPAY ==
[2021-02-05 08:14] VITALS: BMI 45.2
[2021-04-27 13:28] LABS: T4 Free Direct 0.68 ng/dL (0.76-1.46); Thyroid Stim Hormone (TSH) 4.52 uIU/mL (0.358-3.74)
== END ==
PROVIDERS: PCP Internal Medicine; Referring Provider Physician Assistant; Visit Provider Physician Assistant
DX: R94.6 Abnormal results of thyroid function studies (principal)
CPT/HCPCS: 36415; 84439; 84443; 84481

== ENCOUNTER → 2021-06-19 08:51 | Outpatient (CLI) | payer MEDICARE, SELFPAY ==
[2021-02-05 08:14] VITALS: BMI 45.2
[2021-06-19 12:35] LABS: Thyroid Stim Hormone (TSH) 2.48 uIU/mL (0.358-3.74)
== END ==
PROVIDERS: PCP Internal Medicine; Referring Provider Physician Assistant; Visit Provider Physician Assistant
DX: E03.9 Hypothyroidism, unspecified (principal)
CPT/HCPCS: 36415; 84443

== ENCOUNTER → 2021-11-07 13:25 | Outpatient (CLI) | payer MEDICARE, SELFPAY ==
--- NOTE | 2021-11-07 13:26 | BI_ITS ---
MAMMOGRAPHY - BILATERAL SCREENING 3-D TOMOSYNTHESIS REASON FOR EXAM: Female, 75 years old. Breast cancer screening PERTINENT HISTORY: No significant family history. TECHNIQUE: 2-D mammograms and 3-D Tomosynthesis of the breast (s) were performed. CAD was performed. COMPARISON: 11/06/2020 FINDINGS: The breast composition is heterogeneously dense that can obscure small breast masses. Scattered benign calcifications are seen. No dense spiculated masses or suspicious microcalcifications are identified. No architectural distortion is identified. There is no skin thickening or retraction. There has been no significant change since the prior study. BI/SCRN MAMM (CAD)W/NIDA BILAT IMPRESSION: No mammographic signs of malignancy. Routine yearly mammograms recommended. ASSESSMENT CATEGORY: BIRADS Category 1: Negative. A letter regarding these results will be sent to the patient by the facility within 30 days. FOLLOW UP RECOMMENDATION: Yearly follow up mammogram recommended. (A) Approximately 10% of breast cancers are not detected by mammography. A normal mammogram should not delay biopsy of a clinically suspicious abnormality. Electronically Signed: Alex Edwards MD at 14:41 EST Tel , Service support ,
== END ==
PROVIDERS: PCP Internal Medicine; Visit Provider Internal Medicine
DX: Z12.31 Encounter for screening mammogram for malignant neoplasm of breast (principal)
CPT/HCPCS: 77063; 77067

== ENCOUNTER → 2022-11-08 | Outpatient (CLI) | payer MEDICARE, SELFPAY ==
--- NOTE | 2022-11-08 12:36 | BI_ITS ---
MAMMOGRAPHY - BILATERAL SCREENING REASON FOR EXAM: Female, 76 years old. Routine annual screening examination. PERTINENT HISTORY: Non-contributory. TECHNIQUE: Digital bilateral breast nida (3D mammographic acquisition) in the CC and MLO projections. 2-D mediolateral oblique (MLO) and craniocaudad (CC) views of both breasts were obtained. CAD: Full Field Digital Mammography with Computer Added Detection was performed. COMPARISON: Comparison is made with prior study dated 11/07/2021 and 11/06/2020. FINDINGS: Breast Composition: The breasts are heterogeneously dense, which may obscure small masses. There are no dominant masses or suspicious calcifications. No other significant abnormalities are identified. There has been no significant change since the prior study. BI/SCRN MAMM (CAD)W/NIDA BILAT IMPRESSION: Stable bilateral screening mammogram. Yearly follow-up mammogram recommended. (A) ASSESSMENT CATEGORY: BIRADS Category 1: Negative. A letter regarding these results will be sent to the patient by the facility within 30 days. Approximately 10% of breast cancers are not detected by mammography. A normal mammogram should not delay biopsy of a clinically suspicious abnormality. [id number] Electronically Signed: Erik Saxena MD at 11:14 EST ,
== END | disposition home or self-care (01) ==
LOC: OPBI 12:35
PROVIDERS: PCP Internal Medicine; Referring Provider Internal Medicine; Visit Provider Internal Medicine
DX: Z12.31 Encounter for screening mammogram for malignant neoplasm of breast (principal)
CPT/HCPCS: 77063; 77067

== ENCOUNTER 2023-02-04 18:12 | Emergency (ER) | payer MEDICARE, SELFPAY ==
[2023-02-04 18:13] VITALS: BP 114/74; PULSE 77; RESP 16; TEMP 36.1; O2SAT 100; BMI 22.1
--- NOTE | 2023-02-04 18:20 | RAD_ITS ---
EXAM: XR LEFT HAND COMPLETE, 3 OR MORE VIEWS CLINICAL INDICATION: INJURY TECHNIQUE: Frontal, lateral and oblique views of the left hand. This report was created using Numblebee report generation technology. COMPARISON: None. FINDINGS: BONES/JOINTS: There is a fracture of the fifth metacarpal. There are severe degenerative changes seen at the first carpometacarpal joint with joint space narrowing and subchondral cysts seen within both the trapezium and first metacarpal. No sclerotic or destructive changes observed. SOFT TISSUES: Unremarkable. No soft tissue swelling or gas. No radiopaque foreign body. RAD/Hand Min 3 Views IMPRESSION: 1. Fracture of the fifth metacarpal. 2. Severe degenerative changes at the first carpometacarpal joint. Electronically Signed: Pierre Pugh MD at 19:09 EDT ,
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
[2023-02-04 20:35] VITALS: BP 124/72; PULSE 82; RESP 16; TEMP 36.7; O2SAT 99
== END 2023-02-04 20:42 | disposition home or self-care (01) ==
PROVIDERS: Emergency Provider Emergency Medicine; PCP Internal Medicine; Visit Provider Emergency Medicine
DX: S62.327A Displaced fracture of shaft of fifth metacarpal bone, left hand, initial encounter for closed fracture (principal); W18.39XA Other fall on same level, initial encounter; M19.90 Unspecified osteoarthritis, unspecified site; Z79.899 Other long term (current) drug therapy; Z96.642 Presence of left artificial hip joint
CPT/HCPCS: 29130; 73130; 99282

== ENCOUNTER 2023-05-27 09:00 | Outpatient (RCR) | payer MEDICARE, SELFPAY ==
--- NOTE | 2023-03-13 12:38 | HP.OTEVAL_ITS ---
Patient's Visit Information JANIYA SANCHEZ is a 77 year old F, referred to Occupational Therapy by Dr. Maria D Martin MD, with a diagnosis of LSM metacarpal fx. Date of Evaluation: 03/12/23 Occupational Therapist: Elin Arrieta, NEISHA/Jignesh, CHT - Subjective This 77 year old female was seen for OT eval with Displaced fx of 5th metacarpal bone. pt states fall was on 02/04/23. underwent sx on 02/19/23. pt arrives s/p 3 weeks ORIF left SM metacarpal, Osteotomy left small finger metacarpal, tenolysis of EDC tendon to left small finger and tenolysis of EDM tendon of left small finger. pt arrives in custom ulnar gutter orthosis placing pt in safe position. pt denied need for adj. at this time. Pt demo limited ROM of left hand use for ADLs and IADL. Pt is ready to return to her PLOF as soon as possible. - ADLs Dressing: Button shirt Fasteners: Buttons Eating: Cut food Bathing: Handle washcloth & soap, Squeeze shampoo bottle Comments: pt currently is unable to use left UE/hand for ADls and IADLs. pt is compensating for all aspects of ADLs that required bilateral hands. - Pain left 5th 0 Pain Intensity Range: 4 - ROM MP: right LF 0/95 RF 0/90 left LF -10/20 RF -10/40 MF -10/60 PIP: right LF 0/95 RF 0/105 left LF 0/20 RF -5/30 MF 0/35 ROM Comments: pt demo limited ability to perform AROM of left digits 3-5. 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 will be tested at later date - Edema Other: right MCP 18cm left 19.5cm - Sensation Sensation Comments: denies - Quick DASH-Disab of Arm,Shoulder& Hand Quick DASH Score: 61.3625 - Goals Goal:100% adherence to protocol: Yes Comment: Metacarpal fx ORIF guidelines Goal:Daily scar massage when approriate: Yes Goal:ROM equal to unaffected hand: Yes Goal:Project Controls Scheduler/Pinch strength at least 75% of unaffected hand: Yes Goal:Full use of affected hand in daily activities including: Yes - Rehabilitation General Assessment: pt arrives s/p 3 weeks ORIF left SM metacarpal, Osteotomy left small finger metacarpal, tenolysis of EDC tendon to left small finger and tenolysis of EDM tendon of left small finger. pt demo with edema, limited ROM and newly healing structures. These deficits are limiting pts IND. with ADls and IADls. Pt would benefit from Skilled OT services 1-2x week for 4-6 weeks to return pt to her PLOF. Rehabilitation Potential: Good - Anticipated Interventions A/AAROM/PROM, Strengthening, Scar Care, Triggerpoint Release, Modalities, Orthoses, Fine Motor Coord/Saleem, Education re assistive Equipment, Education re Diagnosis, Caregiver Training, Home Program - Visit Plan Frequency: 1-2x /Week Duration: 6 Weeks General Plan: ed. pt to never force joint motion and pain used as primary guide on safely transitioning through the ROM ex. . s/p week 3 cont. with AROM (emphasize composite flexion and extension of digits). s/p week 4-6 wean from orthosis for light ADLs (eating, dressing and brushing teeth) continue to improve ROM to full ROM PROM as needed. s/p week 6-7 safe position orthosis my be discontinued if pt has full ROM. s/p week 8 endurance building and light strengthening (light putty) and wrist wts 1-3# - encourage pt to use hand with all activities no heavy lifting ( 5-10#). s/p week 10-12 resume the use of hand in all ADLs and work tasks. TEXT: Thank you for the opportunity to evaluate your patient. For Medicare and Medicare HMO plans, please review the plan of care and approve it. It will need to be FAXED BACK to us at [phone] for Medicare purposes. Please let me know if there are questions or concerns regarding this plan of care. Physician Signature: Date:
--- NOTE | 2023-04-11 09:16 | OTREVAL_ITS ---
Dr. Maria D Martin MD, It has been my pleasure to treat JANIYA SANCHEZ over the last 7 visits for LSM metacarpal fx. Please see the progress note below for an update on the occupational therapy plan of care! Subjective: pt arrives 6 weeks s/p from ORIF of left SF metacarpal/osteotomy left small Metacarpal, tenolysis of EDC tendon to left SF and tenolysis of EDM tendon of left small finger- Objective/Function: - ROM. MCP: LF current left 0/55 initial was -08/29. MCP RF current 0/65 initial -. MCP MF current /75 initial -. PIP: left. LF current 0/85 initial LF 0/20. RF current 0/85 initial -04/08. MF current 0/80 initial 0. ROM Comments: pt demo limited ability to perform AROM of left digits 3-5. 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 - Strength. [employer]: right 45# left 12#. Lateral Pinch: right 10# left 4#. Tripod Pinch: right 12# left 2#. pt is making good gains with her ROM and functional use. Plan Frequency: 1-2x /Week Duration: 6 Weeks Visits in this POC: 12 Plan: General Plan: ed. pt to never force joint motion and pain used as primary guide on safely transitioning through the ROM ex. . s/p week 3 cont. with AROM (emphasize composite flexion and extension of digits). s/p week 4-6 wean from orthosis for light ADLs (eating, dressing and brushing teeth) continue to improve ROM to full ROM PROM as needed. s/p week 6-7 safe position orthosis my be discontinued if pt has full ROM. s/p week 8 endurance building and light strengthening (light putty) and wrist wts 1-3# - encourage pt to use hand with all activities no heavy lifting ( 5-10#). s/p week 10-12 resume the use of hand in all ADLs and work tasks. Goals - Goals Patient Goals: Decrease Pain, Improve Fine Motor Skills, Use Hand/Wrist/Arm Normally Again, Be More Independent in ADLS Goal:100% adherence to protocol: Yes Goal:Daily scar massage when approriate: Yes Goal:ROM equal to unaffected hand: Yes Goal:[employer]/Pinch strength at least 75% of unaffected hand: Yes Goal:No pain with affected hand use: Yes Goal:Full use of affected hand in daily activities including: Yes Goal:Decrease scar hypersensitivity: Yes Anticipated Interventions Anticipated Interventions: A/AAROM/PROM, Strengthening, Scar Care, Triggerpoint Release, Modalities, Orthoses, Fine Motor Coord/Saleem, Education re assistive Equipment, Education re Diagnosis, Caregiver Training, Home Program Please do not hesitate to contact me at [phone] by phone or if you have questions or concerns regarding this new plan of care! Sincerely, Elin Arrieta, OTR/L, CHT
== END 2023-05-27 19:00 | disposition home or self-care (01) ==
LOC: OT 09:00
PROVIDERS: PCP Internal Medicine
DX: S62.327D Displaced fracture of shaft of fifth metacarpal bone, left hand, subsequent encounter for fracture with routine healing (principal)
CPT/HCPCS: 97110; 97140; 97166; 97530

== ENCOUNTER → 2023-11-25 | Outpatient (CLI) | payer MEDICARE, SELFPAY ==
--- NOTE | 2023-11-25 12:01 | BI_ITS ---
MAMMOGRAPHY - BILATERAL SCREENING REASON FOR EXAM: Female, 77 years old. Routine annual screening examination. PERTINENT HISTORY: Non-contributory. TECHNIQUE: Digital bilateral breast nida (3D mammographic acquisition) in the CC and MLO projections. 2-D mediolateral oblique (MLO) and craniocaudad (CC) views of both breasts were obtained. CAD: Full Field Digital Mammography with Computer Added Detection was performed. COMPARISON: Comparison is made with prior study dated November 08, 2022 and November 07, 2021. FINDINGS: Breast Composition: The breasts are heterogeneously dense, which may obscure small masses. There are no dominant masses or suspicious calcifications. No other significant abnormalities are identified. There has been no significant change since the prior study. BI/SCRN MAMM (CAD)W/NIDA BILAT IMPRESSION: Stable bilateral screening mammogram. Yearly follow-up mammogram recommended. (A) ASSESSMENT CATEGORY: BIRADS Category 1: Negative. A letter regarding these results will be sent to the patient by the facility within 30 days. Approximately 10% of breast cancers are not detected by mammography. A normal mammogram should not delay biopsy of a clinically suspicious abnormality. BI2011 Electronically Signed: Erik Saxena MD at 12:35 EST ,
--- OUTSIDE RECORDS SUMMARY | 2023-11-25 12:31 | XMS RPT_ITS | CCD ---
Author Name Unknown Address [address] [place] [address] Organization [facility] Care Team Providers Care Statistical Developer Name Role Phone Natalie Farris Primary Care Provider [phone] Allergies Allergy Classification Reported Allergen(s) Allergy Type Date of Onset Reaction(s) Facility (8 sources) Amoxicillin / Clavulanate Drug Allergy 05-05-2019 [facility] [employer] [facility] (8 sources) fentaNYL Drug Allergy 05-05-2019 [employer] [facility] (8 sources) Sulfonamides (Antibiotic) Propensity to adverse reactions to drug 05-05-2019 [employer] [facility] Medications Current Medications Medication Drug Class(es) Dates Sig (Normalized) Sig (Original) acetaminophen 325 mg oral tablet (10 sources) Start: 05-06-2019 take 2 tablets by mouth every four hours as needed acetaminophen 325 MG tablet Take 2 tablets by mouth every 4 hours as needed for Mild Pain. 50 tablet 1 05/06/2019 Active Completed/Discontinued Medications Medication Drug Class(es) Dates Sig (Normalized) Sig (Original) celecoxib 200 mg oral capsule (1 source) Nonsteroidal Anti-inflammatory Drug Start: 05-06-2019 End: 05-06-2019 celecoxib (CELEBREX) capsule 200 mg dexamethasone phosphate 10 mg/ml injectable solution (1 source) Corticosteroid Start: 05-07-2019 End: 05-07-2019 take 10 mg intravenous route every twenty-four hours dexamethasone (DECADRON) injection 10 mg 1000 ml sodium chloride 9 mg/ml injection (3 sources) Start: 05-05-2019 End: 05-06-2019 sodium chloride 0.9% IV solution tranexamic acid 650 mg oral tablet (1 source) Antifibrinolytic Agent Start: 05-06-2019 End: 05-06-2019 tranexamic acid (LYSTEDA) tablet 1,950 mg Problems Problem Classification Problem Date Documented Date Episodic/Chronic Deficiency and other anemia (9 sources) Anemia; Translations: [Anemia, unspecified type] Onset: 05-05-2019 05-05-2019 Episodic Fluid and electrolyte disorders (9 sources) Hypokalemia; Translations: [Hypokalemia] Onset: 05-05-2019 05-05-2019 Episodic Fracture of neck of femur (hip) (9 sources) Closed fracture of hip; Translations: [Closed right hip fracture] Onset: 05-05-2019 05-05-2019 Episodic Other connective tissue disease (1 source) History of total hip arthroplasty; Translations: [History of total hip arthroplasty, right] Chronic Other fractures (9 sources) Fracture of bone of hip region; Translations: [Hip fracture, right] Onset: 05-05-2019 05-05-2019 Episodic Other injuries and conditions due to external causes (1 source) H/O: hip fracture; Translations: [History of fracture of hip] Episodic Other non-traumatic joint disorders (1 source) Hip pain; Translations: [Acute postoperative pain of right hip] Episodic Residual codes; unclassified (1 source) History of operative procedure on hip; Translations: [History of repair of hip fracture] Episodic Unclassified (9 sources) Closed fracture of neck of right femur; Translations: [Closed fracture of neck of right femur] Onset: 05-07-2019 05-07-2019 Unclassified (1 source) ERRONEOUS ENCOUNTER--DISREGARD Results Test Name Value Interpretation Reference Range Facil ity Vital Signs Date Time Vital Sign Value Performing Clinician Joce steward 07-29-2019 11:04-0400 BMI (Body Mass Index) 21.73 kg/m2 [facility] 07-29-2019 11:04-0400 Body Temperature 98.01 [degF] [facility] 07-29-2019 11:04-0400 Body weight 52.[address] [facility] 07-29-2019 11:04-[address] [facility] 06-23-2019 13:04-0400 BMI (Body Mass Index) 22.52 kg/m2 [facility] 06-23-2019 13:04-0400 Body Temperature 97.3 [degF] [facility] 06-23-2019 13:04-0400 Body weight 52.3 kg [facility] 06-23-2019 13:04-0400 Height 152.4 cm [facility] 05-27-2019 13:31-0400 BMI (Body Mass Index) 22.52 kg/m2 [facility] 05-27-2019 13:31-0400 Body Temperature 96.6 [degF] [facility] 05-27-2019 13:31-0400 Body weight 52.3 kg [facility] 05-27-2019 13:31-0400 Height 152.4 cm [facility] 05-08-2019 08:30-0400 Pulse Oximetry 97 % [facility] 05-08-2019 07:50-0400 Body Temperature 98.6 [degF] [facility] 05-08-2019 07:50-0400 BP Diastolic 59 mm[Hg] [facility] 05-08-2019 07:50-0400 BP Systolic 128 mm[Hg] [facility] 05-08-2019 07:50-0400 Pulse (Heart Rate) 68 /min [facility] 05-08-2019 07:50-0400 Respiratory Rate 18 /min [facility] 05-08-2019 04:45-0400 BMI (Body Mass Index) 22.5 kg/m2 [facility] 05-08-2019 04:45-0400 Body weight 52.25 kg [facility] 05-05-2019 22:25-0400 Height 152.4 cm [facility] Encounters Encounter Date Encounter Type Care Provider Facility Start: 07-29-2019 End: 07-29-2019 Subsequent hospital visit by physician Ba Kaiser Work Phone: [facility] Radiology Start: 07-29-2019 End: 07-29-2019 Office outpatient visit 15 minutes Ba Kaiser Work Phone: [facility] Orthopedics Procedures Date Procedure Procedure Detail Performing Clinician Start: 05-08-2019 Basic metabolic pane l calcium total Annie Jignesh Noe Work Phone: Start: 05-08-2019 CBC, EDIF, PLATELET Ada na Jignesh Noe Work Phone: Start: 05-07-2019 Basic metabolic pane l calcium total Annie Noe Work Phone: Start: 05-07-2019 CBC, EDIF, PLATELET Ada soraida Noe Work Phone: Start: 05-06-2019 Pelvis X-ray Servando Jean Work Phone: Start: 05-06-2019 Basic metabolic pane l calcium total Annie Noe Work Phone: Start: 05-06-2019 Blood count complete auto&auto difrntl wbc Annie Noe Work Phone: Start: 05-06-2019 Prothrombin time Annie Noe Work Phone: Start: 05-05-2019 Antibody screen rbc each serum technique Ba Kaiser Work Phone: Plan of Treatment Date Care Activity Detail Author Start: 07-29-2019 End: 07-29-2019 Office Visit 07/29/2019 Office Visit Orthopaedics Ba Kaiser MD [address] [place] [address] [phone] [facility] Start: 07-11-2019 Influenza vaccination [facility] Start: 06-24-2019 End: 06-24-2019 Office Visit 06/24/2019 Office Visit Orthopaedics Servando Jean, PASSENGER CAR CLEANING SUPERVISOR-SALES COMMISSIONS ANALYST [address] [place] [address] [phone] [facility] Start: 06-23-2019 End: 06-23-2019 Office Visit 06/23/2019 Office Visit Orthopaedics Servando Jean, PASSENGER CAR CLEANING SUPERVISOR-SALES COMMISSIONS ANALYST [address] [place] [phone] [facility] Start: 05-27-2019 End: 05-27-2019 Appointment [facility] Start: 2011 Pneumococcal vaccination PNEUMOCOCCAL VACCINE SERIES (1 of 2 - PCV13) [facility] Start: 1996 Colonoscopy COLON CANCER SCREENING DISCUSSION [facility] Start: 1996 Zoster vaccine hzv live for subcutaneous use ZOSTER (SHINGLES) VACCINE (1 of 2) [employer] [facility] Start: 1986 Fasting lipid [facility]ING [facility] Start[facility] 1986 Screening [facility]ography [facility] Start: 1967 Screening for malignant neoplasm of cervix PAP SMEAR DIS[facility] Start: 1965 Third diphtheria, tetanus and acellular pertussis (DTaP) vaccination TDAP (ADULT) [facility] Start: 1964 Tetanus vaccination TETANUS [facility] Start: 1946 Hepatitis C antibody, confirmatory test HEPATITIS C VIRUS SCREENING [facility] Start: 1946 Screening for osteoporosis DEXA SCAN DISCUSSION [email or web address] Basic metabolic 2000 panel BASIC METABOLIC PANEL Lab Routine Every morning Lab until discontinued starting 05/06/2019, 3 completed [email or web address] Payers Date Payer Category Payer Medicare MEDICARE ANTHEM HMO OR PPO MEDICARE ANTHEM HMO OR PPO xxxxxxxxxxxx 2019-Present xxxxxxxxxxxx [id number] Social History Date Type Detail Facility Start: 05-05-2019 End: 05-12-2019 Tobacco smoking status NHIS Never smoker [employer] [facility] Start: 05-05-2019 History SDOH Financial 5 [email or web address] Start: 05-05-2019 History SDOH Food Worry 1 [employer] [facility] Start: 05-05-2019 History SDOH Transport Med 2 [email or web address] Sex Assigned At Not on file [email or web address] Start: 06-23-2019 End: 07-29-2019 Alcohol intake Not Currently [facility] Medical Equipment Procedure Code Equipment Code Equipment Origin al Text Equipment Identifier Dates 11mm/130 Deg Ti Sandra Tfna 170mm [id number] Start: 05-06-2019 Tfna Fenstrated Helical Blade 95mm [id number] Start: 05-06-2019 5.0mm Ti Locking Screw W/T25 [employer] 36mm F/Im Nail-Ster [id number] Start: 05-06-2019 Reason for Referral Status Reason Specialty Diagnoses / Procedures Referred By Contact Referred To Contact New Request Orthopaedics Diagnoses Acute postoperative pain of right hip Tisha Dowd, PASSENGER CAR CLEANING SUPERVISOR-SALES COMMISSIONS ANALYST [address] [place] [address] Ba Kaiser MD [address] [place] [phone] Status Reason Specialty Diagnoses / Procedures Referred By Contact Referred To Contact New Request Family Medicine Diagnoses Acute postoperative pain of right hip NoemíTisha PASSENGER CAR CLEANING SUPERVISOR-[facility] [address] [phone] Status Reason Specialty Diagnoses / Procedures Referred By Contact Referred To Contact New Request Procedures ACTIVITY TOLERATED Servando Jean APRN-[place] [phone] Status Reason Specialty Diagnoses / Procedures Referre d By Contact Referred To Contact Servando Jean APRNSALES COMMISSIONS ANALYST [address] [place], [place] [phone] Status Reason Specialty Diagnoses / Procedures Referre d By Contact Referred To Contact Annie Noe CNP [address] [place], [place] [phone] Status Reason Specialty Diagnoses / Procedures Referred By Contact Referred To Contact Pending Review Procedures SEQ COMPRESSION DEVICE UNIT Annie Noe CNP [address] [place], [place] [phone] Status Reason Specialty Diagnoses / Procedures Referred By Contact Referred To Contact Schedule Outgoing - Transfer of Care Physical Therapy Diagnoses History of fracture of hip Servando Jean APRN-SALES COMMISSIONS ANALYST [address] [place] [phone] Scheduling Instructions . Status Reason Specialty Diagnoses / Procedures Referred By Contact Referred To Contact New Request Diagnoses History of fracture of hip Procedures XR HIP WITH PELVIS RIGHT Servando Jean APRN-SALES COMMISSIONS ANALYST [address] [place] [address] Status Reason Specialty Diagnoses / Procedures Referred By Contact Referred To Contact New Request Diagnoses History of total hip arthroplasty, right Procedures XR HIP WITH PELVIS RIGHT Ba Kaiser MD [address] [place] [phone] Status Reason Specialty Diagnoses / Procedures Referred By Contact Referred To Contact New Request Diagnoses History of repair of hip fracture Procedures XR HIP WITH PELVIS RIGHT Ba Kaiser MD [address] [place] [address] Discharge Instructions * Discharge Instr - Activity* Marina Granda RN - 05/08/2019 11:11 AM EDT Full weight bearing as tolerated with wheeled walker. * Discharge Instr - Diet* Palmira Andrea RN - 05/08/2019 11:40 AM EDT Resume home diet as tolerated. * Discharge Instr - Notify* Marina Granda RN - 05/08/2019 11:15 AM EDT Contact Office ([phone]) if: > Any falls or injuries > Redness, drainage or swelling at the incision site that is out of the ordinary from post-operative findings (minor redness, swelling and warmth around the entire knee are common post-operatively) > Patient non-compliance with assistive devices during gait > Fever > 101 degrees. For low grade fevers use Incentive Spirometry @ 10 puffs per hour and tylenol as directed. * Discharge Instr - Wound Care* Marina Granda RN - 05/08/2019 11:17 AM EDT Your incision is closed with jose. These are to be removed in 10-14 days after surgery. Your surgery date was 05/06/19. Do not get your incision wet until after your jose have been removed. Oncethe jose have been removed and you are able to shower do not saturate or submerge extremity in water (i.e. Bathtub, hot tub, etc.) until cleared by the provider. Do not wash/scrub directly over/onyour incision. Pat your incision dry do not rub your incision with a towel. Do not place any lotions, ointments, creams or powder on your incision or operative leg. * Additional Instructions* Marina Granda RN - 05/08/2019 You have been given printed educational handouts on all new medications. Please refer to your greendischarge folder for handouts. You have been given seven ABD pads, one ice gel compression wrap, six ice gel packs, two pairs of MYRA hose and all personal belongings. If at any time you have questions please refer to your green discharge folder with all at home care instructions. If at any time you feel you have an emergency please dial 911 [address] you to your closest ER. Myra Hose: > Help reduce the risk of blood clots and decrease swelling > To be worn bilaterally to the lower extremities for 30 days post-op > Patients can take their myra hose off for 1 hour for every 8 hours that they wear them Medications: > Patients will be sent home with prescriptions, including medication for pain to be taken as directed. Stay ahead and do not allow your pain to get out of control. > If prescribed Aspirin, take twice a day for 30 days. Do not skip a dose, this is your medication for the prevention of blood clots. > If you have not had a bowel movement by your 3rd post-operative day you will need to use a gentle over the counter laxative such as Milk of magnesia, Fiberlax, Miralax, etc. Bowels need to move within 3 days or take action. Gel Ice Packs > Change every 4 hours or as needed for swelling and pain for at least the first 2 weeks Ambulation > Weight bearing status : Weight bearing as tolerated. > Above weight bearing status as tolerated with a walker then progress to a cane if stable, unless noted otherwise by the physician or therapist. For Hip Replacements: > No formal physical therapy, walking is the patients best therapy, unless otherwise noted. > General Hip Precautions Post op (unless otherwise noted from the doctor): * Do not cross legs at knee or ankles * Do not bend past 90 degrees * Do not twist * May roll to side with pillow between legs > Hip Precautions: - Do not allow you hip to flex more than 90 degrees - Do not move your leg past the middle of your body - Do not allow your leg to roll outward (external rotation) - Do not allow your leg to roll inward (internal rotation) - Do not take long strides when walking - Do not use surgical leg to lift buttocks in bed - Do not lie in a completely flat bed - Do not lie on your stomach - Do not use the strength of your leg muscles to move your surgical leg to the side Remember... - Keep your leg in a position that is in line with your body at all times - Use a leg corporate strategy intern to get in and out of bed * Attachments The following attachments cannot be sent through Care Everywhere. * acetaminophen and hydrocodone ([place]) * acetaminophen (oral) ([place]) * docusate (oral/rectal) ([place]) * multivitamins and minerals ([place]) * aspirin (oral) ([place]) * meloxicam ([place]) * omeprazole ([place]) documented in this encounter History of Present Illness * Abril Romero LSW - 05/07/2019 3:14 PM EDT CM delivered wheeled walker at this time. CM available as needed. * Annie Noe CNP - 05/07/2019 11:56 AM EDT [facility] LOS: 2 days Principal Problem: Closed right hip fracture Active Problems: Hypokalemia Anemia Hip fracture, right Closed fracture of neck of right femur SUBJECTIVE: Patient resting in bed. Denies fever, chills, chest pain or sob. Is doing well post operatively. PHYSICAL EXAMINATION: Blood pressure 101/52, pulse 59, temperature 97.8 F (36.6 C), temperature source Oral, resp. rate 18, height 1.524 m (5'), weight 51.5 kg (113 lb 8.6 oz), SpO2 98 %. Gen: Comfortable in bed, no signs of distress HEENT: Normocephalic, atraumatic, Moist oral mucous membranes Neck: supple, Lungs: Clear to auscultation BL, anterior and posterior, without rales, rhonchi or wheezing Heart: Regular in rate and rhythm. Without murmur, rub or gallop Abd: Soft and non-distended. Non tender BSPx 4 Skin: No obvious rashes or cyanosis. Neuro: Grossly non-focal examination. Intake and Output: Intake/Output Summary (Last 24 hours) at 05/07/2019 1157 Last data filed at 05/07/2019 0600 Gross per 24 hour Intake 2154 ml Output 1100 ml Net 1054 ml Daily Weight: Wt Readings from Last 3 Encounters: 05/07/19 51.5 kg (113 lb 8.6 oz) CURRENT MEDICATIONS: Current Facility-Administered Medications Medication Dose Route Frequency Provider Last Rate Last Dose acetaminophen (TYLENOL) tablet 650 mg 650 mg Oral Q4H PRN PRITI Cruz 650 mg at 05/07/[address] 81 mg 81 mg Oral BID PRITI Cruz 81 mg at 05/07/19 1010 bisacodyl (DULCOLAX) suppository 10 mg 10 mg Rectal Daily PRN PRITI Cruz docusate (COLACE) capsule 100 mg 100 mg Oral BID PRITI Cruz 100 mg at 05/07/19 1011 hydroCODone-acetaminophen (NORCO) 5-325 MG per tablet 1-2 tablet 1-2 tablet Oral Q4H PRN PRITI Cruz HYDROmorphone (DILAUDID) injection 0.5 mg 0.5 mg Intravenous Q2H PRN PRITI Cruz ketorolac (TORADOL) injection 15 mg 15 mg Intravenous Q6H Servando Jean APRN-RONNA 15 mg at 05/07/19 0636 morphine injection 2 mg 2 mg Intravenous Q2H PRN Annie Noe CNP 2 mg at 05/06/19 0900 ondansetron 4mg/2ml (ZOFRAN) injection 4 mg 4 mg Intravenous Q6H PRN Annie Noe CNP 4 mg at05/06/19 0512 ondansetron 4mg/2ml (ZOFRAN) injection 4 mg 4 mg Intravenous Q4H PRN PRITI Cruz 4 mg at 05/06/19 2135 oxyCODONE-acetaminophen (PERCOCET) 5-325 MG per tablet 1 tablet 1 tablet Oral Q4H PRN Annie Noe CNP 1 tablet at 05/06/19 1105 potassium chloride (K-DUR, KLOR-CON M20) tablet ER 40 mEq 40 mEq Oral Daily PRN Annie L Hasmukh, SALES COMMISSIONS ANALYST senna-docusate (SENOKOT-S) 8.6-50 MG per tablet 2 tablet 2 tablet Oral BID PRN PRITI Cruz sodium chloride 0.9% IV solution Intravenous Continuous Annie Noe CNP 100 mL/hr at 05/06/19 0646 sodium chloride 0.9% IV solution 100 mL/hr Intravenous Continuous PRITI Cruz Stopped at 05/07/19 0630 sodium phosphate w/sodium biphosphate (FLEETS) enema 1 enema 1 enema Rectal Daily PRN PRITI Cruz zolpidem (AMBIEN) tablet 5 mg 5 mg Oral QHS PRN PRITI Cruz [facility]: CBC Lab Results Component Value Date/Time WBC 10.0 05/07/2019 06:00 AM WBC 7.3 05/06/2019 05:03 AM HGB 9.9 (L) 05/07/2019 06:00 AM HGB 11.2 (L) 05/06/2019 05:03 AM HCT 28.3 (L) 05/07/2019 06:00 AM HCT 32.6 (L) 05/06/2019 05:03 AM PLATELET 165 05/07/2019 06:00 AM PLATELET 198 05/06/2019 05:03 AM Chemistry Lab Results Component Value Date/Time GLUCOSE 100 05/07/2019 06:00 AM GLUCOSE 112 (H) 05/06/2019 05:03 AM BUN 13 05/07/2019 06:00 AM BUN 8 05/06/2019 05:03 AM CREATSERUM 0.59 05/07/2019 06:00 AM CREATSERUM 0.50 (L) 05/06/2019 05:03 AM SODIUM 137 05/07/2019 06:00 AM SODIUM 140 05/06/2019 05:03 AM POTASSIUM 3.9 05/07/2019 06:00 AM POTASSIUM 3.6 05/06/2019 05:03 AM CHLORIDE 108 (H) 05/07/2019 06:00 AM CHLORIDE 112 (H) 05/06/2019 05:03 AM CO2 24 05/07/2019 06:00 AM CO2 25 05/06/2019 05:03 AM CALCIUM 8.2 (L) 05/07/2019 06:00 AM CALCIUM 8.0 (L) 05/06/2019 05:03 AM COAG Lab Results Component Value Date/Time PT 13.3 05/06/2019 05:03 AM INR 1.02 05/06/2019 05:03 AM ASSESSMENT & PLAN: Principal Problem: Closed right hip fracture- POD # 2 - comminuted trochanteric right hip fracture due to fall - pain management, - doing well, PT/OT To evaluate and treat Active Problems: Hypokalemia-monitor Anemia- no signs or sx of active bleeding- monitor Dvt/gip- ppi and scd Full Code Please note Portions of this note utilized [employer] software, please excuse any typographical or grammatical errors. Associated attestation - Anant Anne MD - 05/07/2019 9:35 PM EDT I have independently interviewed and examined the patient. I have discussed mckinney elements of the care plan with the MANNEQUIN SANDER AND FINISHER and I agree with the findings and care plan as stated above. Feels ok pain ctrl Oob as mike Pt/ot D/w dr kaiser Pt prefers to go home Heart rrr Lungs clear Abd soft Hip incision dry See orders Dc in am if stable * Abril Romero LSW - 05/07/2019 11:06 AM EDT CM received call from [facility] inquiring about patient information. CM was told that patient was discharging to their facility, but CM had not heard anything from patient. CM checked with patient and patient confirmed that it is the current plan. CM to fax patient information to [facility] at this time. CM to follow. * Abril Romero LSW - 05/07/2019 8:53 AM EDT [facility] met with patient this date to discuss discharge plans. Patient states that she currently lives alone in a two story home, but only uses the first floor. She states that she has 3 children and a sister who are all helpful and supportive. She states she does have advance directives. She states that she is normally completely independent. She stated I am so independent that people can't stand it . She states that her sister is coming to stay with her for awhile, but won't be in town until tomorrow. Patient states I cannot be discharged until tomorrow, my sister won't be here until then, andthat is the only time I have a ride . Patient states that she does not want home health and she can do it on her own . Patient is denying all needs at this time. CM provided contact information in case any new needs arise. CM available as needed. 05/07/19 0852 Information Source Information Source patient Contact Information Social Work Contact Name Abril Romero [employer] Advance Directives Type of Advance Directive healthcare power of packager hand;living will Living Environment Lives With alone Living Arrangements house (2-story) Provides Primary Care For no one Primary Care Provided By self Support System Immediate family Able to Return to Prior Arrangements yes Employment/Financial Financial Concerns none Cognitive/Perceptual/Developmental Current Mental Status/Cognitive Functioning no deficits noted Developmental Stage Stage 8 (66 years-/Late Adulthood) Integrity vs. Despair Emotional/Psychological Affect no deficits noted Mood congruent to situation Verbal Skills no deficits noted Current Interpersonal Conduct/Behavior appropriate to situation Mental Health Conditions/Symptoms none Thought Process Alterations no deficits noted Referral Information Referral Source physician * Ba Kaiser MD - 05/07/2019 8:27 AM EDT Total Joint Progress Note SUBJECTIVE: No new symptoms or complaints. Medically stable. No chest pain, shortness of breath or abdominal pain. OBJECTIVE: Lab Results Component Value Date WBC 10.0 05/07/2019 HGB 9.9 (L) 05/07/2019 HCT 28.3 (L) 05/07/2019 PLATELET 165 05/07/2019 MCV 92.8 05/07/2019 Lab Results Component Value Date SODIUM 137 05/07/2019 POTASSIUM 3.9 05/07/2019 CHLORIDE 108 (H) 05/07/2019 CO2 24 05/07/2019 BUN 13 05/07/2019 CREATSERUM 0.59 05/07/2019 GLUCOSE 100 05/07/2019 Vital Signs: Vitals: 05/07/19 0300 BP: 103/52 Pulse: 59 Resp: 16 Temp: 98.5 F (36.9 C) Patient is alert and oriented times three. Vascular: Dorsalis pedis/posterior tibial pulses both intact. Neuro:unchanged NV status with normal strength, function and sensation. Wound Appearance: Clean and dry, intact. Dressing: Clean/dry/intact. DVT Screening Exam: Calves soft/non-tender, myra hose and mechanical device on. Physical Therapy: ROM: is meeting goals. Restriction and precaution education taught and understood. Impression: status post TFN right hip fracture PLAN: 1. PT/OT 2. DVT prophylaxis 3. Discharge planning-Ok to discharge when arranged. Followup in 2-3 weeks. [place] out at 10-14 days. * Anne Mcclellan OT - 05/06/2019 3:05 PM EDT 05/06/19 0887 General Information RN Approved Intervention as tolerated Admitting Diagnosis right closed hip fracture s/p fall Surgical Procedure ORIF IM nailing of right hip Past Surgical History Past Surgical History: Procedure Laterality Date HIP REPLACEMENT Left 06/2011 info source: patient Past Medical History No past medical history on file. Existing Precautions/Restrictions fall Previous Level of Function Bed Mobility/Transfers independent Bathing independent Upper Body Dressing independent Lower Body Dressing independent Grooming independent Toileting independent Eating independent Home Management Skills independent General Pain Documentation (Adult, OB, Peds) Presence of Pain complains of pain/discomfort Pain Location hip, right Pain Management Interventions cold application Select Pain Scale (distracted by nausea reports it doesn't feel that bad ) Home Setting Residence Home Lives With alone First floor bed/bathroom yes;walk-in shower Second floor bed/bathroom no Number of Stairs to Enter Home 0 Number of Stairs Within Home 0 Equipment Available standard walker;assembler metal building;long-handled shoe horn;long handle sponge Cognitive Status Examination Orientation Status (Cognition) oriented x 4 Level of Consciousness alert Able to Follow Commands (Communication) WFL Personal Safety and Judgment intact Sensory Examination Sensory Examination WFL Range of Motion (ROM) Range of Motion Examination bilateral upper extremity ROM was WFL Manual Muscle Testing (MMT) Dominant Hand right Bed Mobility Skill: Supine to Sit, Rehab Eval Level of [place]: Supine/Sit minimum assist (75% patients effort) Physical Assist/Nonphysical Assist: Supine/Sit 1 person assist;verbal cues Transfer Skill: Sit to Stand, Rehab Eval Level of [place]: Sit/Stand minimum assist (75% patients effort) Physical Assist/Nonphysical Assist: Sit/Stand 1 person assist;verbal cues Weight-Bearing Restrictions: Sit/Stand weight-bearing as tolerated Assistive Device for Transfer: Sit/Stand wheeled walker Lower Body Dressing Level of [place] moderate assist (50% patients effort) Physical Assist/Nonphysical Assist 1 person assist Toileting Level of [place] minimum assist (75% patients effort) Physical Assist/Nonphysical Assist 1 person assist;verbal cues General Therapy Interventions Planned Therapy Interventions (OT Eval) ADL retraining;balance training;strengthening;transfer training PRIOR LEVEL [facility] Activity Inpatient Short Form Putting on/Taking Off Lower Body Clothing 4 - No Assistance Bathing 4 - No Assistance Toileting 4 - No Assistance Putting on/Taking Off Upper Body Clothing 4 - No Assistance Grooming 4 - No Assistance Eating 4 - No Assistance [facility]IOR LEVEL [facility] Activity Raw Score 24 [facility] Activity Functional Limitation/Modifier 0.00% Prior Functional Impairment in Daily Activity - CURRENT [facility] Daily Activity Inpatient Short Form Putting on/Taking Off Lower Body Clothing 2 - A Lot of Assistance Bathing 3 - A Little Assistance Toileting 3 - A Little Assistance Putting on/Taking Off Upper Body Clothing 4 - No Assistance Grooming 4 - No Assistance Eating 4 - No Assistance CURRENT [facility] Activity Raw Score 20 CURRENT [facility] Activity Functional Limitation/Modifier 38.32% Currently Impaired in Daily Activity - Assessment Assessment Narrative pt completing toileting tasks upon entering, min assit for transfer, review sequencing for walker use. review WBAT. education on supine to sit min assist. patient experiencing emesis with mobility request to return to supine. education on shower chair and possible AE needs willfollow up with other ADLs next session Clinical Impression Patient Instruction transfers, shower chair recommendations Rehab Potential (OT Eval) good, to achieve stated therapy goals Therapy Frequency 7 times a week Anticipated Equipment Needs at Discharge (OT Eval) shower chair;front wheeled walker;dressing equipment Initial Evaluation Completed yes Today's Treatment Included OT evaluation, self care Continue care plan yes Goals Goals For Discharge Pending progress home health Discussed risk / benefits with patient Therapist Recommendations At Discharge Recommendations Will recommend closer to Discharge Plan Plan Narrative continue with bathing, dressing and transfer training Therapist Information License # [id number] 1. Pt will complete LB dressing mod I 2. Pt will complete sponge bathing mod I 3. Pt will complete toileting mod I 4. Pt will complete hygiene/grooming standing at sink with no LOB indep 5. Pt will complete walk in shower transfer mod I * Mandi Tolbert, PT - 05/06/2019 1:00 PM EDT 05/06/19 1113 General Information RN Approved Intervention as tolerated Diagnosis Closed R hip fx Surgical Procedure ORIF, IM nailing Past Medical History No past medical history on file. Past Surgical History Past Surgical History: Procedure Laterality Date HIP REPLACEMENT Left 06/2011 info source: patient Existing Precautions/Restrictions fall Right Lower Extremity (Weight Bearing Status) weight bearing as tolerated Home Setting Residence Home Lives With alone (Will have family to assist at home.) First floor bed/bathroom yes Second floor bed/bathroom no Number of Stairs to Enter Home 0 Equipment Available standard walker Previous Level of Function Ambulation Skills independent Assistive Device none used Level of Ambulation community General Pain Documentation (Adult, OB, Peds) Presence of Pain complains of pain/discomfort Pain Location hip, right (06/19. NSG aware and pt recently medicated.) Cognitive Status Examination Orientation Status (Cognition) oriented x 4 Level of Consciousness alert Able to Follow Commands (Communication) WFL Personal Safety and Judgment intact Range of Motion (ROM) Range of Motion Examination bilateral lower extremity ROM was WFL Manual Muscle Testing (MMT) Manual Muscle Testing Results deficits as listed below (L hip 4/5, R hip 2/5, knee 2+/5) Bed Mobility Skill: Supine to Sit, Rehab Eval Level of [place]: Supine/Sit moderate assist (50% patients effort) Transfer Skill: Sit To Stand, Rehab Eval [place] (Sit-Stand Transfers) minimum assist (75% patient effort) Physical Assist/Nonphysical Assist: Sit/Stand 2 person assist Weight-Bearing Restrictions: Sit/Stand weight-bearing as tolerated Assistive Device For Transfer: Sit/Stand 2 wheeled walker Gait Skills, PT Eval Level of [place]: Gait (Pt unable to ambulate due to nausea and dizziness.) Balance Additional Documentation (Sitting: fair- Standing: poor +) Sensory Examination Sensory Examination WFL General Interventions Planned Therapy Interventions balance training;gait training;neuromuscular re-education;strengthening;transfer training;bed mobility training Additional Comments Pt transferred to EOB with mod assist and retrograde initially in sitting due to pain. Once at EOB for several minutes pt was able to sit up with UE support. Pt reports dizziness and nausea at EOB, but pt did not vomit. Pt transferred sit to stand with min +2 assist and stood x1min with min +2 assist. pt able to bear weight through B LE in standing. Pt refused to sit in chairat this time due to nausea. Pt sat at EOB x30 min before laying back down. pt returned to supine with mod assist. Pt repositioned for comfort. PRIOR LEVEL [facility] Basic Mobility Inpatient Short Form Turning over in bed 4 - No Assistance Sitting/standing from chair 4 - No Assistance Moving from lying on back to sitting 4 - No Assistance Moving to and from bed to chair 4 - No Assistance Walk in hospital room 4 - No Assistance Climbing 3-5 steps with a railing 4 - No Assistance PRIOR LEVEL [facility] Mobility Raw Score 24 PRIOR LEVEL [facility] Mobility Functional Limitation/Modifier 0.00% Prior Functional Impairment in Basic Mobility - CH CURRENT [facility] Basic Mobility Inpatient Short Form Turning over in bed 2 - A Lot of Assistance Sitting/standing from chair 2 - A Lot of Assistance Moving from lying on back to sitting 2 - A Lot of Assistance Moving to and from bed to chair 2 - A Lot of Assistance Walk in hospital room 1 - Total Assistance Climbing 3-5 steps with a railing 1 - Total Assistance CURRENT [facility] Mobility Raw Score 10 CURRENT [facility] Mobility Functional Limitation/Modifier 76.75% Currently Impaired in Basic Mobility - CL Projected [facility] Mobility Raw Score 17 Projected [facility] Mobility Functional Limitation/Modifier 50.57% Projected Functional Impairment in Basic Mobility - CK Assessment Assessment Narrative Pt s/p ORIF R hip this AM. Pt having post-op nausea and dizziness. Per family,pt is typically very active at home, and family can assist at discharge. Once pt is feeling better,she should progress well. Discharge Recommendations At this time will plan for home with family and possible HH PT. If mobility does not progress well, could consider rehab. Clinical Impression Criteria for Skilled Therapeutic Interventions Met (PT Eval) yes Impairments Found (PT Eval) muscle performance;gait, locomotion, and balance Rehab Potential (PT Eval) good, to achieve stated therapy goals Therapy Frequency 2 times a day Anticipated Equipment Needs at Discharge (PT Eval) front wheeled walker Initial Evaluation Completed yes Continue care plan yes Today's Treatment Included PT eval, transfers, pt education Therapist Recommendations At Discharge Recommendations PT Services recommended at Discharge Plan Plan Narrative Next visit progress mobility, work on sequencing for gait, begin LE ther-ex as able and give HEP. Therapist Information [place] # [id number] PT Goals: 1. Pt will increase standing balance to fair- to decrease fall risk. 2. Pt will perform all transfers with SB assist to ensure safety at home. 3. Pt will ambulate 150 ft with FWW and SB assist to ensure safety with household ambulation. 4. Pt will ambulate up and down 4 steps with rail and SB assist. 5. Pt will be independent with HEP. * Annie Noe, SALES COMMISSIONS ANALYST - 05/06/2019 12:43 PM EDT [facility] LOS: 1 day Principal Problem: Closed right hip fracture Active Problems: Hypokalemia Anemia Hip fracture, right SUBJECTIVE: Patient resting in bed. Denies fever, chills, chest pain or sob. Is doing well post operatively. PHYSICAL EXAMINATION: Blood pressure 90/53, pulse 55, temperature 97 F (36.1 C), temperature source Axillary, resp. rate 16, height 1.524 m (5'), weight 51.3 kg (113 lb), SpO2 100 %. Gen: Comfortable in bed, no signs of distress HEENT: Normocephalic, atraumatic, Moist oral mucous membranes Neck: supple, Lungs: Clear to auscultation BL, anterior and posterior, without rales, rhonchi or wheezing Heart: Regular in rate and rhythm. Without murmur, rub or gallop Abd: Soft and non-distended. Non tender BSPx 4 Skin: No obvious rashes or cyanosis. Neuro: Grossly non-focal examination. Intake and Output: Intake/Output Summary (Last 24 hours) at 05/06/2019 1246 Last data filed at 05/06/2019 0615 Gross per 24 hour Intake 1060 ml Output 925 ml Net 135 ml Daily Weight: Wt Readings from Last 3 Encounters: 05/06/19 51.3 kg (113 lb) CURRENT MEDICATIONS: Current Facility-Administered Medications Medication Dose Route Frequency Provider Last Rate Last Dose acetaminophen (TYLENOL) tablet 650 mg 650 mg Oral Q4H PRN PRITI Cruz [START ON 05/07/2019] aspirin EC tablet DR 81 mg 81 mg Oral BID PRITI Cruz bisacodyl (DULCOLAX) suppository 10 mg 10 mg Rectal Daily PRN PRITI Cruz clindamycin (CLEOCIN) 900 mg in normal saline 50 ml premix IVPB 900 mg Intravenous Once PRITI Cruz clindamycin (CLEOCIN) 900 mg in normal saline 50 ml premix IVPB 900 mg Intravenous Q8HNS PRITI Cruz [START ON 05/07/2019] dexamethasone (DECADRON) injection 10 mg 10 mg Intravenous Q24H PRITI Cruz docusate (COLACE) capsule 100 mg 100 mg Oral BID PRITI Cruz hydroCODone-acetaminophen (NORCO) 5-325 MG per tablet 1-2 tablet 1-2 tablet Oral Q4H PRN PRITI Cruz HYDROmorphone (DILAUDID) injection 0.5 mg 0.5 mg Intravenous Q2H PRN PRITI Cruz ketorolac (TORADOL) injection 15 mg 15 mg Intravenous Q6H PRITI Cruz morphine injection 2 mg 2 mg Intravenous Q2H PRN Annie Noe CNP 2 mg at 05/06/19 0900 ondansetron 4mg/2ml (ZOFRAN) injection 4 mg 4 mg Intravenous Q6H PRN Annie Noe CNP 4 mg at05/06/19 0512 ondansetron 4mg/2ml (ZOFRAN) injection 4 mg 4 mg Intravenous Q4H PRN PIRTI Cruz oxyCODONE-acetaminophen (PERCOCET) 5-325 MG per tablet 1 tablet 1 tablet Oral Q4H PRN Annie Noe CNP 1 tablet at 05/06/19 1105 potassium chloride (K-DUR, KLOR-CON M20) tablet ER 40 mEq 40 mEq Oral Daily PRN Annie Noe CNP senna-docusate (SENOKOT-S) 8.6-50 MG per tablet 2 tablet 2 tablet Oral BID PRN PRITI Cruz sodium chloride 0.9% IV solution Intravenous Continuous Annie Noe CNP 100 mL/hr at 05/06/19 0646 sodium chloride 0.9% IV solution 100 mL/hr Intravenous Continuous PRITI Cruz 100 mL/hr at05/06/19 0917 100 mL/hr at 05/06/19 0917 sodium phosphate w/sodium biphosphate (FLEETS) enema 1 enema 1 enema Rectal Daily PRN PRITI Cruz zolpidem (AMBIEN) tablet 5 mg 5 mg Oral QHS PRN PRITI Cruz [facility]: CBC Lab Results Component Value Date/Time WBC 7.3 05/06/2019 05:03 AM HGB 11.2 (L) 05/06/2019 05:03 AM HCT 32.6 (L) 05/06/2019 05:03 AM PLATELET 198 05/06/2019 05:03 AM Chemistry Lab Results Component Value Date/Time GLUCOSE 112 (H) 05/06/2019 05:03 AM BUN 8 05/06/2019 05:03 AM CREATSERUM 0.50 (L) 05/06/2019 05:03 AM SODIUM 140 05/06/2019 05:03 AM POTASSIUM 3.6 05/06/2019 05:03 AM CHLORIDE 112 (H) 05/06/2019 05:03 AM CO2 25 05/06/2019 05:03 AM CALCIUM 8.0 (L) 05/06/2019 05:03 AM COAG Lab Results Component Value Date/Time PT 13.3 05/06/2019 05:03 AM INR 1.02 05/06/2019 05:03 AM ASSESSMENT & PLAN: Principal Problem: Closed right hip fracture- comminuted trochanteric right hip fracture- pain management, dvt Brie Kaiser consulted -post op today with DR Kaiser- doing well, PT/OT To evaluate and treat Active Problems: Hypokalemia-monitor Anemia- no signs or sx of active bleeding- Dvt/gip- ppi and scd Full Code Please note Portions of this note utilized [employer] software, please excuse any typographical or grammatical errors. Associated attestation - Anant Anne MD - 05/06/2019 9:00 PM EDT I have independently interviewed and examined the patient. I have discussed mckinney elements of the care plan with the MANNEQUIN SANDER AND FINISHER and I agree with the findings and care plan as stated above. Doing well post op Andreia eomi Heart rrr Lungs clear Pain ctrl No edemas See orders D/w dr kaiser Pt/ot as per ortho * Servando Jean APRN-CNP - 05/06/2019 8:12 AM EDT THIS PATIENT HAS HAD ORTHOPEDIC SURGERY AND IS EXPECTED TO HAVE PAIN REQUIRING NARCOTICS FOR >7 DAYS AND MAY NEED UP TO 8 norco PER DAY AND THEREFORE 30 tabs ARE BEING DISPENSED IN ACCORDANCE WITHPOC DISCUSSED WITH DR KAISER. * Ba Kaiser MD - 05/06/2019 6:19 AM EDT NPO, consented, site marked. Plan right TFN for IT fracture of hip. Ba Kaiser MD documented in this encounter* Servando Jean APRN-CNP - 05/27/2019 1:20 PM EDT HISTORY OF PRESENT ILLNESS: Tammie is an established patient of [facility]. She is here today for followup. She is now about 3 weeks status post right hip intramedullary nailing for an intertroch fracture. She reports overall she is doing well. She is at home managing on her own, otherwise having very little in the way of pain. No problems with the wound. No fevers or chills. No changes constitutionally. She is using a walker. She still does not feel steady on her feet. Otherwise, she is happy with the outcomes of the operation. PHYSICAL EXAMINATION: GENERAL: She is alert, oriented, and age-appropriate female, in no acute distress. She is pleasant and cooperative. EXTREMITIES: Right lower extremity thigh and calf, that are soft and nontender. Normal neurovascular status. Negative Homans sign. Three anterolateral based incisions, which are well healed, well approximated without redness drainage, dehiscence, discharge, signs or symptoms of infection. Left lower extremity has thigh and calf that are soft and nontender. Normal neurovascular status. Negative Homans sign. DIAGNOSTIC STUDY AND INTERPRETATION: AP pelvis and right hip series taken today demonstrates stable positioning and alignment of the femur with intramedullary nailing present in unchanged position and alignment when compared to the immediate postoperative imaging. No evidence of hardware failure or cut- out. A left total hip arthroplasty is also noted in unchanged position and alignment when compared to previous imaging. ASSESSMENT AND PLAN: Three weeks status post right hip intramedullary nailing. PLAN: I reviewed my findings with Tammie. Overall, I could not be happier with the outcomes of the operation. She asked about physical therapy. At this point, I am okay giving her a prescription for physical therapy for gait training, strengthening, balance, and stability. She also requested a handicap placard, which will be provided for her. We talked about resumption of her activities, slow and steady moving forward. We talked about the cessation of the DVT prophylaxis, both mechanical and chemical. She has understanding of that. All of her questions and concerns were addressed to her satisfaction. I will see her back in 3 weeks' time for repeat clinical and radiographic examination. As always, should she need anything in the meantime, I am happy to see her sooner. (DOC:[id number]) Procedures I have reviewed the findings of the clinical sales support specialist and agree with their assessment. PRITI Cruz Ortho Nurse Established Patient Intake Room#: 4 PT reports for 3 week s/p right hip fx nailing. PT denies any pain at this time and reports remaining active and getting better every day. PT reports managing pain well with Tylenol, PT reports she has not taken Meloxicam at all since surgery. PT is currently in home PT and using a walker for an assistive device. Date: 05/27/2019 1:36 PM Patient: Tammie Slaughter MR#: [id number] : 1945 Age: 73 y.o. Referring Physician: Servando Jean APRN-CNP Insurance: Payor: MEDICARE ANTHEM HMO OR PPO / Plan: MEDICARE ANTHEM HMO OR PPO / Product Type: *NoProduct type* / Chief Complaint Patient presents with Right Hip - Post Op Visit Visit Vitals Temp 96.6 F (35.9 C) (Temporal) Ht 1.524 m (5') Wt 52.3 kg (115 lb 4.8 oz) BMI 22.52 kg/m Pain Recent Labs No results found for: CRP No results found for: SEDRATE Lab Results Component Value Date WBC 10.0 05/08/2019 HGB 9.9 (L) 05/08/2019 HCT 27.7 (L) 05/08/2019 PLATELET 180 05/08/2019 MCV 91.9 05/08/2019 History No past medical history on file. Past Surgical History: Procedure Laterality Date ORIF INTERTROCHANTERIC/PERITROCHANTERIC/SUBTROCHANTERIC FX W/ INTRAMEDULLARY NAIL/JOZEF Right 05/06/2019 Laterality: Right; Surgeon: Ba Kaiser MD; Location: [facility] OR HIP REPLACEMENT Left 06/2011 info source: patient Family History: Her family history includes Breast Cancer in her mother; Myocardial Infarction in her father. Social History: Her reports that she has never smoked. She has never used smokeless tobacco. She reports that she drank alcohol. She reports that she does not use drugs. Outpatient Medications Prior to Visit Medication Sig Dispense Refill acetaminophen 325 MG tablet Take 2 tablets by mouth every 4 hours as needed for Mild Pain. 50 tablet 1 aspirin EC [address] Take 1 table twice a day for 30days. This medication is for blood clot prevention. 60 tablet 0 docusate 100 MG Cap capsule Take 1 capsule by mouth 2 times daily. 60 capsule 0 therapeutic multivitamin-minerals Tab Take 1 tablet by mouth at bedtime. 30 tablet 0 hydroCODone-acetaminophen 5-325 MG Tab tablet Take 1-2 tablets by mouth every 6 hours as needed forup to 8 days. Do not take over 4000mg acetaminophen daily. 30 tablet 0 meloxicam 7.5 MG Tab Take 1 tablet by mouth daily. Take with food. (Patient not taking: Reported on05/27/2019) 30 tablet 0 omeprazole [address] capsule Take 1 capsule by mouth daily. (Patient not taking: Reported on 05/27/2019) 30 capsule 0 No facility-administered medications prior to visit. Current Outpatient Medications: acetaminophen 325 MG tablet, Take 2 tablets by mouth every 4 hours as needed for Mild Pain., Disp: 50 tablet, Rfl: 1 aspirin EC [address], Take 1 table twice a day for 30days. This medication is for blood clot prevention., Disp: 60 tablet, Rfl: 0 docusate 100 MG Cap capsule, Take 1 capsule by mouth 2 times daily., Disp: 60 capsule, Rfl: 0 therapeutic multivitamin-minerals Tab, Take 1 tablet by mouth at bedtime., Disp: 30 tablet, Rfl: 0 hydroCODone-acetaminophen 5-325 MG Tab tablet, Take 1-2 tablets by mouth every 6 hours as needed for up to 8 days. Do not take over 4000mg acetaminophen daily., Disp: 30 tablet, Rfl: 0 meloxicam 7.5 MG Tab, Take 1 tablet by mouth daily. Take with food. (Patient not taking: Reported on 05/27/2019), Disp: 30 tablet, Rfl: 0 omeprazole [address] capsule, Take 1 capsule by mouth daily. (Patient not taking: Reported on 05/27/2019), Disp: 30 capsule, Rfl: 0 Allergies: She is allergic to fentanyl; augmentin [amoxicillin-pot clavulanate]; and sulfa antibiotics. * Ino Mcclellan - 05/27/2019 1:20 PM EDT Ortho Nurse Established Patient Intake Room#: 4 PT reports for 3 week s/p right hip fx nailing. PT denies any pain at this time and reports remaining active and getting better every day. PT reports managing pain well with Tylenol, PT reports she has not taken Meloxicam at all since surgery. PT is currently in home PT and using a walker for an assistive device. Date: 05/27/2019 1:36 PM Patient: Tammie Slaughter MR#: [id number] : 1945 Age: 73 y.o. Referring Physician: Servando Jean APRN-CNP Insurance: Payor: MEDICARE ANTHEM HMO OR PPO / Plan: MEDICARE ANTHEM HMO OR PPO / Product Type: *NoProduct type* / Chief Complaint Patient presents with Right Hip - Post Op Visit Visit Vitals Temp 96.6 F (35.9 C) (Temporal) Ht 1.524 m (5') Wt 52.3 kg (115 lb 4.8 oz) BMI 22.52 kg/m Pain Recent Labs No results found for: CRP No results found for: SEDRATE Lab Results Component Value Date WBC 10.0 05/08/2019 HGB 9.9 (L) 05/08/2019 HCT 27.7 (L) 05/08/2019 PLATELET 180 05/08/2019 MCV 91.9 05/08/2019 History No past medical history on file. Past Surgical History: Procedure Laterality Date ORIF INTERTROCHANTERIC/PERITROCHANTERIC/SUBTROCHANTERIC FX W/ INTRAMEDULLARY NAIL/JOZEF Right 05/06/2019 Laterality: Right; Surgeon: Ba aKiser MD; Location: [facility] OR HIP REPLACEMENT Left 06/2011 info source: patient Family History: Her family history includes Breast Cancer in her mother; Myocardial Infarction in her father. Social History: Her reports that she has never smoked. She has never used smokeless tobacco. She reports that she drank alcohol. She reports that she does not use drugs. Outpatient Medications Prior to Visit Medication Sig Dispense Refill acetaminophen 325 MG tablet Take 2 tablets by mouth every 4 hours as needed for Mild Pain. 50 tablet 1 aspirin EC [address] Take 1 table twice a day for 30days. This medication is for blood clot prevention. 60 tablet 0 docusate 100 MG Cap capsule Take 1 capsule by mouth 2 times daily. 60 capsule 0 therapeutic multivitamin-minerals Tab Take 1 tablet by mouth at bedtime. 30 tablet 0 hydroCODone-acetaminophen 5-325 MG Tab tablet Take 1-2 tablets by mouth every 6 hours as needed forup to 8 days. Do not take over 4000mg acetaminophen daily. 30 tablet 0 meloxicam 7.5 MG Tab Take 1 tablet by mouth daily. Take with food. (Patient not taking: Reported on05/27/2019) 30 tablet 0 omeprazole [address] capsule Take 1 capsule by mouth daily. (Patient not taking: Reported on 05/27/2019) 30 capsule 0 No facility-administered medications prior to visit. Current Outpatient Medications: acetaminophen 325 MG tablet, Take 2 tablets by mouth every 4 hours as needed for Mild Pain., Disp: 50 tablet, Rfl: 1 aspirin EC [address], Take 1 table twice a day for 30days. This medication is for blood clot prevention., Disp: 60 tablet, Rfl: 0 docusate 100 MG Cap capsule, Take 1 capsule by mouth 2 times daily., Disp: 60 capsule, Rfl: 0 therapeutic multivitamin-minerals Tab, Take 1 tablet by mouth at bedtime., Disp: 30 tablet, Rfl: 0 hydroCODone-acetaminophen 5-325 MG Tab tablet, Take 1-2 tablets by mouth every 6 hours as needed for up to 8 days. Do not take over 4000mg acetaminophen daily., Disp: 30 tablet, Rfl: 0 meloxicam 7.5 MG Tab, Take 1 tablet by mouth daily. Take with food. (Patient not taking: Reported on 05/27/2019), Disp: 30 tablet, Rfl: 0 omeprazole [address] capsule, Take 1 capsule by mouth daily. (Patient not taking: Reported on 05/27/2019), Disp: 30 capsule, Rfl: 0 Allergies: She is allergic to fentanyl; augmentin [amoxicillin-pot clavulanate]; and sulfa antibiotics. documented in this encounter* Servando Jean, PASSENGER CAR CLEANING SUPERVISOR-SALES COMMISSIONS ANALYST - 06/23/2019 1:00 PM EDT HISTORY OF PRESENT ILLNESS: Tammie is an established patient of [facility]. She is here today for followup. She is now about 7 weeks status post right hip intramedullary nailing for fracture. She reports overall she is doing well. She is using crutches to get around. She feels like she is still not yet able to bear full weight on leg. She is not using anything for pain. No fevers or chills. No changes constitutionally. Overall, she is pleased with the outcome of the operation. PHYSICAL EXAMINATION: GENERAL: She is alert, oriented, and age-appropriate female, in no acute distress, pleasant and cooperative. EXTREMITIES: Right lower extremities has thigh and calf, that are soft and nontender. Normal neurovascular status. Negative Homans sign. A reasonable range of motion of the hip, far limits of this were not tested due to the recent fracture. Left lower extremity has thigh and calf, soft and nontender. Normal neurovascular status. Negative Homans sign. Incisions are well healed to the right leg. DIAGNOSTIC STUDY AND INTERPRETATION: AP pelvis and right hip series taken today demonstrate stable positioning of the hardware and the stable positioning of the fracture. Alignment appears to be increased callus formation on the medial side of the femur consistent with healing. No evidence of hardware failure or cut-out. ASSESSMENT AND PLAN: Seven weeks status post right hip intramedullary nailing. PLAN: I reviewed my findings with Tammie as well as her family today. Overall, I could not be happier with the outcomes of the operation. I would like to repeat radiographic and clinical examination in 4 weeks time. I have encouraged her to use Tylenol as well as meloxicam, which she has at home for a continued management of her pain and as always should she develop new questions or concerns, I am happy to see her sooner. Beyond that, I am encouraging her to continue to return to her normal activities including chores and riding horses. Further discussion with Dr. Kaiser. (DOC:[id number]) Procedures I have reviewed the findings of the clinical sales support specialist and agree with their assessment. [facility] Ortho Nurse Established Patient Intake Room#: 5 PT reports for 7 week f/u for right hip IM nailing. PT denies any pain at this time, and is using crutches as an assistive device. PT denies taking any medication PRN for pain. Date: 06/23/2019 1:10 PM Patient: Tammie Slaughter MR#: [id number] : 1945 Age: 73 y.o. Referring Physician: Servando Jean APRN-CNP Insurance: [facility] / Plan: MEDICARE ANTHEM HMO OR PPO / Product Type: *NoProduct type* / Chief Complaint Patient presents with Right Hip - Follow-up Visit Vitals Temp 97.3 F (36.3 C) (Temporal) Ht 1.524 m (5') Wt 52.3 kg (115 lb 4.8 oz) BMI 22.52 kg/m Pain Recent Labs No results found for: CRP No results found for: SEDRATE Lab Results Component Value Date WBC 10.0 05/08/2019 HGB 9.9 (L) 05/08/2019 HCT 27.7 (L) 05/08/2019 PLATELET 180 05/08/2019 MCV 91.9 05/08/2019 History No past medical history on file. Past Surgical History: Procedure Laterality Date ORIF INTERTROCHANTERIC/PERITROCHANTERIC/SUBTROCHANTERIC FX W/ INTRAMEDULLARY NAIL/JOZEF Right 05/06/2019 Laterality: Right; Surgeon: Ba Kaiser MD; Location: [facility] HIP REPLACEMENT Left 06/2011 info source: patient Family History: Her family history includes Breast Cancer in her mother; Myocardial Infarction in her father. Social History: Her reports that she has never smoked. She has never used smokeless tobacco. She reports that she drank alcohol. She reports that she does not use drugs. Outpatient Medications Prior to Visit Medication Sig Dispense Refill clindamycin 150 MG Cap capsule Take 4 capsules 1 hour before the procedure 8 capsule 1 DISABILITY PLACARD Disability placard end date 09/08/19. Dx 719.7 1 Each 0 therapeutic multivitamin-minerals Tab Take 1 tablet by mouth at bedtime. 30 tablet 0 acetaminophen 325 MG tablet Take 2 tablets by mouth every 4 hours as needed for Mild Pain. (Patientnot taking: Reported on 06/23/2019) 50 tablet 1 aspirin EC [address] Take 1 table twice a day for 30days. This medication is for blood clot prevention. 60 tablet 0 docusate 100 MG Cap capsule Take 1 capsule by mouth 2 times daily. 60 capsule 0 hydroCODone-acetaminophen 5-325 MG Tab tablet Take 1-2 tablets by mouth every 6 hours as needed forup to 8 days. Do not take over 4000mg acetaminophen daily. 30 tablet 0 meloxicam 7.5 MG Tab Take 1 tablet by mouth daily. Take with food. (Patient not taking: Reported on05/27/2019) 30 tablet 0 omeprazole [address] capsule Take 1 capsule by mouth daily. (Patient not taking: Reported on 05/27/2019) 30 capsule 0 No facility-administered medications prior to visit. Current Outpatient Medications: clindamycin 150 MG Cap capsule, Take 4 capsules 1 hour before the procedure, Disp: 8 capsule, Rfl: 1 DISABILITY PLACARD, Disability placard end date 09/08/19. Dx 719.7, Disp: 1 Each, Rfl: 0 therapeutic multivitamin-minerals Tab, Take 1 tablet by mouth at bedtime., Disp: 30 tablet, Rfl: 0 acetaminophen 325 MG tablet, Take 2 tablets by mouth every 4 hours as needed for Mild Pain. (Patient not taking: Reported on 06/23/2019), Disp: 50 tablet, Rfl: 1 aspirin EC [address], Take 1 table twice a day for 30days. This medication is for blood clot prevention., Disp: 60 tablet, Rfl: 0 docusate 100 MG Cap capsule, Take 1 capsule by mouth 2 times daily., Disp: 60 capsule, Rfl: 0 hydroCODone-acetaminophen 5-325 MG Tab tablet, Take 1-2 tablets by mouth every 6 hours as needed for up to 8 days. Do not take over 4000mg acetaminophen daily., Disp: 30 tablet, Rfl: 0 meloxicam 7.5 MG Tab, Take 1 tablet by mouth daily. Take with food. (Patient not taking: Reported on 05/27/2019), Disp: 30 tablet, Rfl: 0 omeprazole [address] capsule, Take 1 capsule by mouth daily. (Patient not taking: Reported on 05/27/2019), Disp: 30 capsule, Rfl: 0 Allergies: She is allergic to fentanyl; augmentin [amoxicillin-pot clavulanate]; and sulfa antibiotics. * Ino Mcclellan - 06/23/2019 1:00 PM EDT Ortho Nurse Established Patient Intake Room#: 5 PT reports for 7 week f/u for right hip IM nailing. PT denies any pain at this time, and is using crutches as an assistive device. PT denies taking any medication PRN for pain. Date: 06/23/2019 1:10 PM Patient: Tammie Slaughter MR#: [id number] : 1945 Age: 73 y.o. Referring Physician: Servando Jean APRN-CNP Insurance: Payor: MEDICARE ANTHEM HMO OR PPO / Plan: MEDICARE ANTH HMO OR PPO / Product Type: *NoProduct type* / Chief Complaint Patient presents with Right Hip - Follow-up Visit Vitals Temp 97.3 F (36.3 C) (Temporal) Ht 1.524 m (5') Wt 52.3 kg (115 lb 4.8 oz) BMI 22.52 kg/m Pain Recent Labs No results found for: CRP No results found for: SEDRATE Lab Results Component Value Date WBC 10.0 05/08/2019 HGB 9.9 (L) 05/08/2019 HCT 27.7 (L) 05/08/2019 PLATELET 180 05/08/2019 MCV 91.9 05/08/2019 History No past medical history on file. Past Surgical History: Procedure Laterality Date ORIF INTERTROCHANTERIC/PERITROCHANTERIC/SUBTROCHANTERIC FX W/ INTRAMEDULLARY NAIL/JOZEF Right 05/06/2019 Laterality: Right; Surgeon: Ba Kaiser MD; Location: [facility] HIP REPLACEMENT Left 06/2011 info source: patient Family History: Her family history includes Breast Cancer in her mother; Myocardial Infarction in her father. Social History: Her reports that she has never smoked. She has never used smokeless tobacco. She reports that she drank alcohol. She reports that she does not use drugs. Outpatient Medications Prior to Visit Medication Sig Dispense Refill clindamycin 150 MG Cap capsule Take 4 capsules 1 hour before the procedure 8 capsule 1 DISABILITY PLACARD Disability placard end date 09/08/19. Dx 719.7 1 Each 0 therapeutic multivitamin-minerals Tab Take 1 tablet by mouth at bedtime. 30 tablet 0 acetaminophen 325 MG tablet Take 2 tablets by mouth every 4 hours as needed for Mild Pain. (Patientnot taking: Reported on 06/23/2019) 50 tablet 1 aspirin EC [address] Take 1 table twice a day for 30days. This medication is for blood clot prevention. 60 tablet 0 docusate 100 MG Cap capsule Take 1 capsule by mouth 2 times daily. 60 capsule 0 hydroCODone-acetaminophen 5-325 MG Tab tablet Take 1-2 tablets by mouth every 6 hours as needed forup to 8 days. Do not take over 4000mg acetaminophen daily. 30 tablet 0 meloxicam 7.5 MG Tab Take 1 tablet by mouth daily. Take with food. (Patient not taking: Reported on05/27/2019) 30 tablet 0 omeprazole [address] capsule Take 1 capsule by mouth daily. (Patient not taking: Reported on 05/27/2019) 30 capsule 0 No facility-administered medications prior to visit. Current Outpatient Medications: clindamycin 150 MG Cap capsule, Take 4 capsules 1 hour before the procedure, Disp: 8 capsule, Rfl: 1 DISABILITY PLACARD, Disability placard end date 09/08/19. Dx 719.7, Disp: 1 Each, Rfl: 0 therapeutic multivitamin-minerals Tab, Take 1 tablet by mouth at bedtime., Disp: 30 tablet, Rfl: 0 acetaminophen 325 MG tablet, Take 2 tablets by mouth every 4 hours as needed for Mild Pain. (Patient not taking: Reported on 06/23/2019), Disp: 50 tablet, Rfl: 1 aspirin EC [address], Take 1 table twice a day for 30days. This medication is for blood clot prevention., Disp: 60 tablet, Rfl: 0 docusate 100 MG Cap capsule, Take 1 capsule by mouth 2 times daily., Disp: 60 capsule, Rfl: 0 hydroCODone-acetaminophen 5-325 MG Tab tablet, Take 1-2 tablets by mouth every 6 hours as needed for up to 8 days. Do not take over 4000mg acetaminophen daily., Disp: 30 tablet, Rfl: 0 meloxicam 7.5 MG Tab, Take 1 tablet by mouth daily. Take with food. (Patient not taking: Reported on 05/27/2019), Disp: 30 tablet, Rfl: 0 omeprazole [address] capsule, Take 1 capsule by mouth daily. (Patient not taking: Reported on 05/27/2019), Disp: 30 capsule, Rfl: 0 Allergies: She is allergic to fentanyl; augmentin [amoxicillin-pot clavulanate]; and sulfa antibiotics. documented in this encounter* Ba Kaiser MD - 07/29/2019 10:30 AM EDT HPI: Patient is here today for evaluation of their operative hip. She is status post trochanteric nailing. She is about 4 months out and reports that she is doing well and is pleased with the outcome of the intervention. PHYSICAL EXAM: The bilateral lower extremities were evaluated. The operative lower extremity is soft, nontender with full and supple motion of the hip. No pain, no impingement. No instability. The contralateral extremity has full motion, normal stability, no tenderness. Bilateral lower extremities have normal neurovascular status. DIAGNOSTIC STUDIES/INTERPRETATION: Plain film radiographs reviewed. She has a total hip arthroplasty in good position and alignment. No evidence of prosthetic implant loosening or migration. IMPRESSION: Stable status post nailing right hip fracture, doing well. PLAN: I am pleased with the outcome of intervention. She has made an excellent recovery. I expect continued improvement in strength and mobility moving forward. I recommend followup at one year postop for repeat clinical and radiographic examination or sooner if any new symptoms develop. She will call with any questions or concerns in the meantime. Ba Kaiser MD I have reviewed the findings of my clinical staff below and agree with their assessment. Ortho Nurse Established Patient Intake Room#: 1 4 month Right hip pinning, pain by the end of the day at 3-4, mostly swelling Date: 07/29/2019 11:07 AM Patient: Tammie Slaughter MR#: [id number] : 1945 Age: 73 y.o. Referring Physician: Ba Kaiser MD Insurance: Payor: MEDICARE ANTHEM HMO OR PPO / Plan: MEDICARE ANTHEM HMO OR PPO / Product Type: *NoProduct type* / Chief Complaint Patient presents with Right Hip - Post Op Visit Visit Vitals Temp 98 F (36.7 C) (Temporal) Ht 1.549 m (5' 1 ) Wt 52.2 kg (115 lb) BMI 21.73 kg/m Pain Presence of Pain: complains of pain/discomfort Pain Location: hip, right Select Pain Scale: DVPRS (Defense and Veterans Pain Rating Scale) (Adult- Cognitively Intact) Pain Location: hip, right Select Pain Scale: DVPRS (Defense and Veterans Pain Rating Scale) (Adult- Cognitively Intact) Recent Labs No results found for: CRP No results found for: SEDRATE Lab Results Component Value Date WBC 10.0 05/08/2019 HGB 9.9 (L) 05/08/2019 HCT 27.7 (L) 05/08/2019 PLATELET 180 05/08/2019 MCV 91.9 05/08/2019 History No past medical history on file. Past Surgical History: Procedure Laterality Date ORIF INTERTROCHANTERIC/PERITROCHANTERIC/SUBTROCHANTERIC FX W/ INTRAMEDULLARY NAIL/JOZEF Right 05/06/2019 Laterality: Right; Surgeon: Ba Kaiser MD; Location: [facility] HIP REPLACEMENT Left 06/2011 info source: patient Family History: Her family history includes Breast Cancer in her mother; Myocardial Infarction in her father. Social History: Her reports that she has never smoked. She has never used smokeless tobacco. She reports that she drank alcohol. She reports that she does not use drugs. Outpatient Medications Prior to Visit Medication Sig Dispense Refill clindamycin 150 MG Cap capsule Take 4 capsules 1 hour before the procedure 8 capsule 1 therapeutic multivitamin-minerals Tab Take 1 tablet by mouth at bedtime. 30 tablet 0 acetaminophen 325 MG tablet Take 2 tablets by mouth every 4 hours as needed for Mild Pain. (Patientnot taking: Reported on 06/23/2019) 50 tablet 1 aspirin EC [address] Take 1 table twice a day for 30days. This medication is for blood clot prevention. (Patient not taking: Reported on 07/29/2019) 60 tablet [address] DISABILITY PLACARD Disability placard end date 09/08/19. Dx 719.7 1 Each 0 docusate 100 MG Cap capsule Take 1 capsule by mouth 2 times daily. (Patient not taking: Reported on07/29/2019) 60 capsule 0 hydroCODone-acetaminophen 5-325 MG Tab tablet Take 1-2 tablets by mouth every 6 hours as needed forup to 8 days. Do not take over 4000mg acetaminophen daily. 30 tablet 0 meloxicam 7.5 MG Tab Take 1 tablet by mouth daily. Take with food. (Patient not taking: Reported on05/27/2019) 30 tablet 0 omeprazole [address] capsule Take 1 capsule by mouth daily. (Patient not taking: Reported on 05/27/2019) 30 capsule 0 No facility-administered medications prior to visit. Current Outpatient Medications: clindamycin 150 MG Cap capsule, Take 4 capsules 1 hour before the procedure, Disp: 8 capsule, Rfl: 1 therapeutic multivitamin-minerals Tab, Take 1 tablet by mouth at bedtime., Disp: 30 tablet, Rfl: 0 acetaminophen 325 MG tablet, Take 2 tablets by mouth every 4 hours as needed for Mild Pain. (Patient not taking: Reported on 06/23/2019), Disp: 50 tablet, Rfl: 1 aspirin EC [address], Take 1 table twice a day for 30days. This medication is for blood clot prevention. (Patient not taking: Reported on 07/29/2019), Disp: 60 tablet, Rfl: 0 DISABILITY PLACARD, Disability placard end date 09/08/19. Dx 719.7, Disp: 1 Each, Rfl: 0 docusate 100 MG Cap capsule, Take 1 capsule by mouth 2 times daily. (Patient not taking: Reported on 07/29/2019), Disp: 60 capsule, Rfl: 0 hydroCODone-acetaminophen 5-325 MG Tab tablet, Take 1-2 tablets by mouth every 6 hours as needed for up to 8 days. Do not take over 4000mg acetaminophen daily., Disp: 30 tablet, Rfl: 0 meloxicam 7.5 MG Tab, Take 1 tablet by mouth daily. Take with food. (Patient not taking: Reported on 05/27/2019), Disp: 30 tablet, Rfl: 0 omeprazole [address] capsule, Take 1 capsule by mouth daily. (Patient not taking: Reported on 05/27/2019), Disp: 30 capsule, Rfl: 0 Allergies: She is allergic to fentanyl; augmentin [amoxicillin-pot clavulanate]; and sulfa antibiotics. Procedures * Gurinder Sutton LPN - 07/29/2019 10:30 AM EDT Ortho Nurse Established Patient Intake Room#: 1 4 month Right hip pinning, pain by the end of the day at 3-4, mostly swelling Date: 07/29/2019 11:07 AM Patient: Tammie Slaughter MR#: [id number] : 1945 Age: 73 y.o. Referring Physician: Ba Kaiser MD Insurance: Payor: MEDICARE ANTHEM HMO OR PPO / Plan: MEDICARE ANTHEM HMO OR PPO / Product Type: *NoProduct type* / Chief Complaint Patient presents with Right Hip - Post Op Visit Visit Vitals Temp 98 F (36.7 C) (Temporal) Ht 1.549 m (5' 1 ) Wt 52.2 kg (115 lb) BMI 21.73 kg/m Pain Presence of Pain: complains of pain/discomfort Pain Location: hip, right Select Pain Scale: DVPRS (Defense and Veterans Pain Rating Scale) (Adult- Cognitively Intact) Pain Location: hip, right Select Pain Scale: DVPRS (Defense and Veterans Pain Rating Scale) (Adult- Cognitively Intact) Recent Labs No results found for: CRP No results found for: SEDRATE Lab Results Component Value Date WBC 10.0 05/08/2019 HGB 9.9 (L) 05/08/2019 HCT 27.7 (L) 05/08/2019 PLATELET 180 05/08/2019 MCV 91.9 05/08/2019 History No past medical history on file. Past Surgical History: Procedure Laterality Date ORIF INTERTROCHANTERIC/PERITROCHANTERIC/SUBTROCHANTERIC FX W/ INTRAMEDULLARY NAIL/JOZEF Right 05/06/2019 Laterality: Right; Surgeon: Ba Kaiser MD; Location: [facility] HIP REPLACEMENT Left 06/2011 info source: patient Family History: Her family history includes Breast Cancer in her mother; Myocardial Infarction in her father. Social History: Her reports that she has never smoked. She has never used smokeless tobacco. She reports that she drank alcohol. She reports that she does not use drugs. Outpatient Medications Prior to Visit Medication Sig Dispense Refill clindamycin 150 MG Cap capsule Take 4 capsules 1 hour before the procedure 8 capsule 1 therapeutic multivitamin-minerals Tab Take 1 tablet by mouth at bedtime. 30 tablet 0 acetaminophen 325 MG tablet Take 2 tablets by mouth every 4 hours as needed for Mild Pain. (Patientnot taking: Reported on 06/23/2019) 50 tablet 1 aspirin EC [address] Take 1 table twice a day for 30days. This medication is for blood clot prevention. (Patient not taking: Reported on 07/29/2019) 60 tablet [address] DISABILITY PLACARD Disability placard end date 09/08/19. Dx 719.7 1 Each 0 docusate 100 MG Cap capsule Take 1 capsule by mouth 2 times daily. (Patient not taking: Reported on07/29/2019) 60 capsule 0 hydroCODone-acetaminophen 5-325 MG Tab tablet Take 1-2 tablets by mouth every 6 hours as needed forup to 8 days. Do not take over 4000mg acetaminophen daily. 30 tablet 0 meloxicam 7.5 MG Tab Take 1 tablet by mouth daily. Take with food. (Patient not taking: Reported on05/27/2019) 30 tablet 0 omeprazole [address] capsule Take 1 capsule by mouth daily. (Patient not taking: Reported on 05/27/2019) 30 capsule 0 No facility-administered medications prior to visit. Current Outpatient Medications: clindamycin 150 MG Cap capsule, Take 4 capsules 1 hour before the procedure, Disp: 8 capsule, Rfl: 1 therapeutic multivitamin-minerals Tab, Take 1 tablet by mouth at bedtime., Disp: 30 tablet, Rfl: 0 acetaminophen 325 MG tablet, Take 2 tablets by mouth every 4 hours as needed for Mild Pain. (Patient not taking: Reported on 06/23/2019), Disp: 50 tablet, Rfl: 1 aspirin EC [address], Take 1 table twice a day for 30days. This medication is for blood clot prevention. (Patient not taking: Reported on 07/29/2019), Disp: 60 tablet, Rfl: 0 DISABILITY PLACARD, Disability placard end date 09/08/19. Dx 719.7, Disp: 1 Each, Rfl: 0 docusate 100 MG Cap capsule, Take 1 capsule by mouth 2 times daily. (Patient not taking: Reported on 07/29/2019), Disp: 60 capsule, Rfl: 0 hydroCODone-acetaminophen 5-325 MG Tab tablet, Take 1-2 tablets by mouth every 6 hours as needed for up to 8 days. Do not take over 4000mg acetaminophen daily., Disp: 30 tablet, Rfl: 0 meloxicam 7.5 MG Tab, Take 1 tablet by mouth daily. Take with food. (Patient not taking: Reported on 05/27/2019), Disp: 30 tablet, Rfl: 0 omeprazole [address] capsule, Take 1 capsule by mouth daily. (Patient not taking: Reported on 05/27/2019), Disp: 30 capsule, Rfl: 0 Allergies: She is allergic to fentanyl; augmentin [amoxicillin-pot clavulanate]; and sulfa antibiotics. documented in this encounter* Anushka Bellamy LPN - 05/27/2019 11:28 AM EDT A user error has taken place: encounter opened in error, closed for administrative reasons. documented in this encounter Assessments Diagnosis Closed fracture of right hip, initial encounter Hypokalemia Hypopotassemia Anemia, unspecified type Acute postoperative pain of right hip Hip fracture, right Closed fracture of unspecified part of neck of femur Closed fracture of neck of right femur Closed fracture of unspecified part of neck of femur Diagnosis History of fracture of hip- Primary Personal history of traumatic fracture Diagnosis History of total hip arthroplasty, right- Primary Diagnosis History of repair of hip fracture- Primary Diagnosis ERRONEOUS ENCOUNTER--DISREGARD- Primary Advance Directives Latest Code Status on File Code Status Date Activated Date Inactivated Comments Full Code 05/06/2019 8:44 AM Latest Code Status on File Code Status Date Activated Date Inactivated Comments Full Code 05/06/2019 8:44 AM Summary Purpose Family History No Family History Records Found Additional Source Comments Reason for Visit (unrecogniz ed section and content) Reason Comments Follow-up Reason Comments Post Op Visit Status Reason Specialty Diagnoses / Procedures Referred By Contact Referred To Contact New Request Diagnoses History of fracture of hip Procedures XR HIP WITH PELVIS RIGHT MirandaServando APRN-CNP [address] [id number] Status Reason Specialty Diagnoses / Procedures Referred By Contact Referred To Contact New Request Diagnoses History of total hip arthroplasty, right Procedures XR HIP WITH PELVIS RIGHT Ba Kaiser MD [address] [id number] Status Reason Specialty Diagnoses / Procedures Referred By Contact Referred To Contact New Request Diagnoses History of repair of hip fracture Procedures XR HIP WITH PELVIS RIGHT Ba Kaiser MD [address] [id number] INFORMATION SOURCE (unrecogn ized section and content) FOR RECORDS PERTAINING TO PATIENTS WHO ARE OR HAVE BEEN ENROLLED IN A CHEMICAL DEPENDENCY/SUBSTANCEABUSE PROGRAM, SOME INFORMATION MAY BE OMITTED. This clinical summary was aggregated from multiple sources. Caution should be exercised in using it in the provision of clinical care. This summary normalizes information from multiple sources, and as a consequence, information in this document may materially change the coding, format and clinical context of patient data. In addition, data may be omitted in some cases. CLINICAL DECISIONS SHOULD BE BASED ON THE PRIMARY CLINICAL RECORDS. [facility]. provides no warranty or guarantee of the accuracy or completeness of information in this document.
== END | disposition home or self-care (01) ==
LOC: OPBI 12:01
PROVIDERS: PCP Internal Medicine; Referring Provider Internal Medicine; Visit Provider Internal Medicine
DX: Z12.31 Encounter for screening mammogram for malignant neoplasm of breast (principal)
CPT/HCPCS: 77063; 77067

== ENCOUNTER → 2024-12-06 | Outpatient (CLI) | payer MEDICARE, SELFPAY ==
--- NOTE | 2024-12-06 12:41 | BI_ITS ---
MAMMOGRAPHY - BILATERAL SCREENING REASON FOR EXAM: Female, 79 years old. Routine annual screening examination. PERTINENT HISTORY: Non-contributory. TECHNIQUE: Digital bilateral breast nida (3D mammographic acquisition) in the CC and MLO projections. 2-D mediolateral oblique (MLO) and craniocaudad (CC) views of both breasts were obtained. CAD: Full Field Digital Mammography with Computer Added Detection was performed. COMPARISON: Comparison is made with prior study dated May 25, 2024 and November 08, 2022. FINDINGS: Breast Composition: The breasts are heterogeneously dense, which may obscure small masses. There are no dominant masses or suspicious calcifications. No other significant abnormalities are identified. There has been no significant change since the prior study. BI/SCRN MAMM (CAD)W/NIDA BILAT IMPRESSION: Stable bilateral screening mammogram. Yearly follow-up mammogram recommended. (A) ASSESSMENT CATEGORY: BIRADS Category 1: Negative. A letter regarding these results will be sent to the patient by the facility within 30 days. Approximately 10% of breast cancers are not detected by mammography. A normal mammogram should not delay biopsy of a clinically suspicious abnormality. [id number] Electronically Signed: Erik Saxena MD at 13:30 EST ,
== END | disposition home or self-care (01) ==
LOC: OPBI 12:39
PROVIDERS: PCP Family Medicine; Referring Provider Family Medicine; Visit Provider Family Medicine
DX: Z12.31 Encounter for screening mammogram for malignant neoplasm of breast (principal)
CPT/HCPCS: 77063; 77067